=== PATIENT | male | born 1940 | race Caucasian/White ===

== ENCOUNTER 2017-01-13 18:46 | Inpatient (IN) ==
--- NOTE | 2017-01-13 20:16 | Emergency Department Note ---
Arrival - Arrival Chief Complaint: Shortness of Breath ED Nursing Triage Note: Pt arrives via ems from [facility] for further eval of shortness of breath that worsened today. Pt states that he has been nauseated all day and had chest pain off and on. Denies any pain at time of triage. Noted to have sob with exertion. Mode of Arrival: Stretcher Limitations: No Limitations Source: Patient Time Seen by Provider: 01/13/17 19:07 - History of Present Illness HPI Narrative: Patient was transferred here from [facility]. He went there today complaining of a dull, waxing and waning chest pain that it been present since this morning. That has resolved at present. He was also having some nausea but this is chronic with him due to diabetic gastroparesis. He also complained of some shortness of breath. He has a history of AR in the past with bypass and stents. Stent was placed [address] Cannon. He states this pain is different from the pain he felt with the MRI. He has had a cough productive of yellow sputum and some sinus drainage recently. He is a former smoker and is not clear, but he may have a history of COPD as well. Allergies/Adverse Reactions: Allergies Allergy/AdvReac Type Severity Reaction Status Date / Time No Known Allergies Allergy Unverified 08/28/16 03:04 Home Medications: Home Medications Medication Instructions Recorded Confirmed Type Aspirin [Ecotrin] 81 mg PO BEDTIME 08/28/16 01/13/17 History LORazepam [Ativan] 2 mg PO BID 08/28/16 01/13/17 History Losartan Potassium [Cozaar] 100 mg PO DAILY 08/28/16 01/13/17 History Magnesium Chloride [Slow Mag] 64 mg PO BID 08/28/16 01/13/17 History Melatonin/Pyridoxine HCl (B6) 3 mg PO BEDTIME 08/28/16 01/13/17 History [Melatonin 3 mg Tablet] OLANZapine TAB [ZyPREXA Tab] 5 mg PO BEDTIME 08/28/16 01/13/17 History Omeprazole [Prilosec] 20 mg PO BEDTIME 08/28/16 01/13/17 History Ondansetron HCl [Zofran] 4 mg PO Q4-6H PRN 08/28/16 01/13/17 History Ranolazine [Ranexa] 1,000 mg PO BID 08/28/16 01/13/17 History Rosuvastatin [Crestor] 10 mg PO DAILY 08/28/16 01/13/17 History glyBURIDE/METFORMIN 5-500 1,000 mg PO BID 08/28/16 01/13/17 History [Glucovance 5-500] traZODone [Desyrel] 100 mg PO BEDTIME 08/28/16 01/13/17 History Furosemide Tab [Lasix Tab] 40 mg PO DAILY #90 tablet 08/30/16 01/13/17 Rx Nebivolol [Bystolic] 10 mg PO DAILY #90 tablet 08/30/16 01/13/17 Rx Ticagrelor [Brilinta] 90 mg PO BID #180 tablet 08/30/16 01/13/17 Rx Review of System - Review of System 12 point system: reviewed and no additional remarkable complaints except as stated - Review of System Constitutional: Absent: fever, weakness Head/Ears/Nose/Throat: Present: nasal drainage Respiratory: Present: cough Cardiovascular: Present: chest pain Gastrointestinal: Present: nausea. Absent: abdominal pain, vomiting Medical,Surgical,& Family Hx - Medical History Cardio: History of: Cardiac Dysrhythmia, CAD, Hypertension, Valvular Heart Disease HEENT: History of: Ear Problem (EAR INFECTIONS, CAUSING HEARING LOSS) Endocrine: History of: Diabetes Mellitus (NIDDM) Respiratory: History of: Obstructive Sleep Apnea Gastrointestinal: History of: GI Problems (CONSTIPATION) Hematology: History of: Anemia, Hematologic Cancer (Multiple myeloma) - Surgical History Cardiac Surgeries: Sugical HX of: Cardiac Catheterization, Cardiac Surgery (CABG ), Carotid Endarterectomy (LEFT) HEENT Surgeries: Surgical HX of: Carotid Endarterectomy (LEFT) Abdominal Surgeries: Surgical HX of: Cholecystectomy Orthopedic Surgeries: Surgical HX of;: Total Knee Replacement (RIGHT AND LEFT) - Family History Family History: noncontributory - Social History Smoking Status: Current every day smoker Frequency of Alcohol Use: None Type of Drug Use: None Exam Physical Examination: GENERAL: Alert. No acute distress. Pale. HEENT: Normocephalic and atraumatic. PERRLA. EOMI. There is no nasal drainage. No pharyngeal erythema or exudate. NECK: Normal inspection. Supple. No lymphadenopathy or meningismus. LUNGS: No respiratory distress. Clear to auscultation bilaterally, no wheezes, rales or rhonchi. HEART: Regular rate and rhythm. 3/6 systolic murmur. ABDOMEN: Soft, nontender and nondistended with normoactive bowel sounds. BACK: Normal inspection. SKIN: Pale. Warm and dry. EXTREMITIES: Nontender. Normal range of motion. No pedal edema. NEUROLOGICAL/PSYCHIATRIC: Alert and oriented -3 with normal mood and affect. Cranial nerves normal. No motor or sensory deficit. Vital Signs: Vital Signs Temperature 98.9 F 01/13/17 18:46 Pulse Rate 80 01/13/17 18:46 Respiratory Rate 20 01/13/17 19:03 Blood Pressure 142/58 01/13/17 18:46 O2 Sat by Pulse Oximetry 100 01/13/17 18:46 Course - Reevaluation(s) Reevaluation #1: The patient has remained stable here in the emergency room. He continues to have some mild shortness of breath but denies any chest pain and has no nausea at present. I discussed patient with Dr. Johnson and will admit. I think the majority of his problem is due to his anemia and we will go ahead and transfuse him. Time: 20:37 Results - Labs Lab Results: I have reviewed the patients labs Labs: Labs were done at [facility] and are significant as follows: White blood cell count 6.72 Hemoglobin 7.3 Hematocrit 23.8 Platelets 275 Glucose 203 BUN 17 Creatinine 1.04 Sodium 131 Potassium 4.9 Carbon dioxide 21 Chloride 95 CK 31 CK-MB 1.7 Troponin less than 0.03 - Impressions EKG shows a sinus rhythm with prolonged FL interval and 74. There are inverted T waves laterally. Chest x-ray shows no acute abnormality. Disposition Clinical Impression: Anemia, Chest pain, Dyspnea, Gastroparesis Case discussed with: patient, patient's family Disposition: Still a Patient Condition: Guarded Time of Disposition: 20:38
[2017-01-13] MEDS ORDERED: MAGNESIUM SULF RIDER 2 GM in PREMIX 1 EACH IV PRN (21:36)
[2017-01-13] MEDS ORDERED: DEXTROSE 50% 25 GM/50 ML VIAL IV PRN (21:36)
[2017-01-13] MEDS ORDERED: GLUCAGON 1 MG VIAL IM PRN (21:36)
[2017-01-13] MEDS ORDERED: MAGNESIUM SULF RIDER 4 GM in PREMIX 1 EACH IV PRN (21:36)
[2017-01-13] MEDS ORDERED: SODIUM CHLORIDE 0.9% 250 ML IV PRN (21:36)
[2017-01-14] MEDS: ONDANSETRON 4 MG/2 ML VIAL IV PRN ×2 (02:01→08:36)
--- NOTE | 2017-01-14 07:27 | EKG Report ---
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
[2017-01-14 07:57] LABS: Basophils % 0.4 % (0.0-0.8); Eosinophils # 0.1 10*3/uL (0.0-0.87); Eosinophils % 0.7 % (0.00-10.9); Hematocrit 29.6 VOL% (42.0-52.0); Hemoglobin 9.9 GM/DL (14.0-18.0); Immature Granulocytes Absolute 0.08 #; Lymphocytes # 0.5 10*3/uL (1.4-4.0); Lymphocytes % 5.8 % (21.2-54.2); Mean Corpuscular HGB Conc 33.4 GM/DL (32-36); Mean Corpuscular Hemoglobin 29 PG (27-34); Mean Platelet Volume 11.8 FL (9.6-12.0); Monocytes # 0.4 10*3/uL (0.11-0.8); Monocytes % 5.5 % (1.7-12.7); Neutrophils % 86.6 % (38.7-73.9); Platelet Count 214 T/CUMM (130-400); Red Blood Count 3.44 MC/CUMM (3.8-5.5); Red Cell Distribution Width 16.4 % (9.3-17.3)
[2017-01-14] MEDS: PANTOPRAZOLE 40 MG TABLET PO SCH (08:35)
[2017-01-14] MEDS ORDERED: DOCUSATE SODIUM 100 MG CAPSULE PO SCH (09:00)
[2017-01-14] MEDS ORDERED: OLANZapine 5 MG TABLET PO SCH (09:00)
[2017-01-14] MEDS ORDERED: ROSUVASTATIN 10 MG TABLET PO SCH (09:00)
[2017-01-14] MEDS ORDERED: LORazepam 1 MG TABLET PO PRN (09:00)
[2017-01-14] MEDS ORDERED: LOSARTAN 50 MG TABLET PO SCH (09:00)
[2017-01-14] MEDS: RANOLAZINE 500 MG TABLET PO SCH ×2 (09:38→20:36)
[2017-01-14] MEDS: FERROUS SULFATE 325 MG TABLET PO SCH ×2 (09:38→20:36)
[2017-01-14] MEDS: MAGNESIUM CHLORIDE 64 MG TABLET PO SCH (09:38)
[2017-01-14] MEDS: POTASSIUM CHLORIDE 20 MEQ TABLET PO SCH (09:39)
[2017-01-14] MEDS: PROMETHAZINE 25 MG TABLET PO PRN ×2 (09:39→20:36)
[2017-01-14] MEDS: CLOPIDOGREL 75 MG TABLET PO SCH (09:39)
[2017-01-14] MEDS: FUROSEMIDE 20 MG TABLET PO SCH (09:41)
[2017-01-14] MEDS: NEBIVOLOL 5 MG TABLET PO SCH (09:41)
--- NOTE | 2017-01-14 09:58 | EKG Report ---
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
[2017-01-14 11:51] LABS: Basophils % 0.4 % (0.0-0.8); Eosinophils # 0.1 10*3/uL (0.0-0.87); Eosinophils % 0.9 % (0.00-10.9); Hematocrit 30.5 VOL% (42.0-52.0); Immature Granulocytes % 1.2 %; Immature Granulocytes Absolute 0.09 #; Lymphocytes # 0.4 10*3/uL (1.4-4.0); Lymphocytes % 4.9 % (21.2-54.2); Mean Corpuscular HGB Conc 32.8 GM/DL (32-36); Mean Corpuscular Hemoglobin 28 PG (27-34); Mean Corpuscular Volume 86.6 FL (87-102); Mean Platelet Volume 11.9 FL (9.6-12.0); Monocytes # 0.5 10*3/uL (0.11-0.8); Monocytes % 6.5 % (1.7-12.7); Neutrophils # 6.7 10*3/uL (1.4-7.4); Neutrophils % 86.1 % (38.7-73.9); Platelet Count 216 T/CUMM (130-400); Red Blood Count 3.52 MC/CUMM (3.8-5.5); Red Cell Distribution Width 16.3 % (9.3-17.3); White Blood Count 7.8 T/CUMM (4-12)
--- NOTE | 2017-01-14 12:35 | Cardiology History & Physical ---
Assessment and Plan (1) Anemia Status: Acute Assessment and plan: The patient has a marked anemia, which I think is the source of his presenting symptoms. This is likely multifactorial. He has a chronic iron deficiency and a multiple myeloma. He sometimes gets IV iron. He also is on anticoagulation for his stent. He tells me that he was recently changed from Brilinta to Plavix and I agree with this adjustment. He does not have any overt gastrointestinal blood loss. We will get her give him a transfusion and make sure his hemoglobin remained stable. If this remains stable and his symptoms resolved, he may not need further workup right now. If his hemoglobin begins to drop we could reconsult gastroenterology and/or hematology. Current Visit: Yes (2) Dyspnea Status: Acute Assessment and plan: This is multifactorial, related to his COPD, heart disease, advanced age, deconditioning, as well as his marked anemia. I think the recent worsening in his symptoms is probably related to the anemia. We are going to correct this and see how he does. Current Visit: Yes (3) Gastroparesis Status: Acute Assessment and plan: This is been followed by gastroenterology. This is a chronic stable problem. Current Visit: Yes (4) Aortic stenosis Status: Chronic Current Visit: No (5) CAD (coronary artery disease) Status: Chronic Assessment and plan: He has not had any symptoms that really sound like angina. His cardiac enzymes are negative. We will continue medical management for now. Current Visit: No (6) COPD (chronic obstructive pulmonary disease) Status: Chronic Current Visit: No (7) Diabetes Status: Chronic Current Visit: No (8) Dyslipidemia Status: Chronic Current Visit: No (9) Hypertension Status: Chronic Current Visit: No (10) Ischemic cardiomyopathy Status: Chronic Current Visit: No (11) Multiple myeloma Status: Chronic Current Visit: No History of Present Illness History of present illness: Mr. Pa is a 76 year old male with a history of multiple medical problems including coronary artery disease, hypertension, hyperlipidemia, diabetes, multiple myeloma, and diabetic gastroparesis. The patient went to his local hospital after feeling very weak and tired for several days. The symptoms were moderate to severe. There were no specific exacerbating or relieving factors. He also had some nausea/epigastric discomfort which seem to be related to his gastroparesis. At the [facility] he was noted to have a severe anemia with a hemoglobin of around 7 and a hematocrit of around 23. The patient denies any gastrointestinal blood loss, or other sources of blood loss. Given his complex past medical history he was transferred here for further workup and management. Patient has had some vague epigastric discomfort, but nothing that really sounds like angina. His symptoms sound much more like gastroparesis. The symptoms are mild to moderate and chronic in nature. He has not had any palpitations or syncope. He has had no orthopnea, PND, or peripheral edema. He has been very fatigued and tired for several days which is probably secondary to the anemia. His initial cardiac laboratory showed normal cardiac enzymes. His EKG does not show any acute changes. He has chronic ST-T abnormalities which are unchanged from his previous hospitalization. Home Medications Medication Instructions Recorded Confirmed Type Aspirin [Ecotrin] 81 mg PO BEDTIME 08/28/16 01/13/17 History LORazepam [Ativan] 2 mg PO Q6HR 08/28/16 01/14/17 History Magnesium Chloride [Slow Mag] 64 mg PO DAILY 08/28/16 01/14/17 History Melatonin/Pyridoxine HCl (B6) 3 mg PO BEDTIME 08/28/16 01/13/17 History [Melatonin 3 mg Tablet] OLANZapine TAB [ZyPREXA Tab] 5 mg PO BEDTIME 08/28/16 01/14/17 History Omeprazole [Prilosec] 20 mg PO DAILY 08/28/16 01/14/17 History Ranolazine [Ranexa] 500 mg PO BID 08/28/16 01/14/17 History Rosuvastatin [Crestor] 10 mg PO BEDTIME 08/28/16 01/14/17 History glyBURIDE/METFORMIN 5-500 1,000 mg PO BID 08/28/16 01/13/17 History [Glucovance 5-500] Amiodarone Tab [Cordarone Tab] 200 mg PO BEDTIME 01/14/17 01/14/17 History Clopidogrel [Plavix] 75 mg PO DAILY 01/14/17 01/14/17 History Docusate Sodium [Colace] 100 mg PO BEDTIME 01/14/17 01/14/17 History Ferrous Sulfate 325 mg PO Q12HR 01/14/17 01/14/17 History Furosemide Tab [Lasix Tab] 20 mg PO DAILY 01/14/17 01/14/17 History Nebivolol [Bystolic] 5 mg PO DAILY 01/14/17 01/14/17 History Polyethylene Glycol Powder 17 gm PO BEDTIME 01/14/17 01/14/17 History [Miralax] Potassium Chloride 20 meq PO DAILY 01/14/17 01/14/17 History Promethazine Tab [Phenergan Tab] 25 mg PO Q4H PRN 01/14/17 01/14/17 History traZODone [Desyrel] 100 mg PO BEDTIME 01/14/17 01/14/17 History Allergies Allergy/AdvReac Type Severity Reaction Status Date / Time No Known Allergies Allergy Unverified 08/28/16 03:04 12 point system: reviewed and no additional remarkable complaints except as stated Medical,Surgical,& Family Hx - Medical History Cardio: History of: Cardiac Dysrhythmia, CAD, Hypertension, Valvular Heart Disease HEENT: History of: Ear Problem (EAR INFECTIONS, CAUSING HEARING LOSS) Endocrine: History of: Diabetes Mellitus (NIDDM) Respiratory: History of: Obstructive Sleep Apnea Gastrointestinal: History of: GI Problems (CONSTIPATION) Hematology: History of: Anemia, Hematologic Cancer (Multiple myeloma) - Surgical History Cardiac Surgeries: Sugical HX of: Cardiac Catheterization, Cardiac Surgery (CABG ), Carotid Endarterectomy (LEFT) HEENT Surgeries: Surgical HX of: Carotid Endarterectomy (LEFT) Abdominal Surgeries: Surgical HX of: Cholecystectomy Orthopedic Surgeries: Surgical HX of;: Total Knee Replacement (RIGHT AND LEFT) - Social History Smoking Status: Current every day smoker Frequency of Alcohol Use: None Type of Drug Use: None Cardiology Physical Exam - Constitutional Vitals: Vital Signs Temp Pulse Resp BP Pulse Ox 98.4 F 72 18 132/64 99 01/14/17 12:00 01/14/17 12:00 01/14/17 12:00 01/14/17 12:00 01/14/17 12:00 Intake and Output 01/13/17 01/14/17 01/14/17 23:59 07:59 15:59 Intake Total 480 / 480 1000 / 1000 350 / 350 Output Total 750 / 750 400 / 400 Balance -270 / -270 600 / 600 350 / 350 Intake: Oral 480 / 480 300 / 300 Blood Product 0 / 0 700 / 700 350 / 350 Red Blood Cells Leuko Red 0 / 0 350 / 350 Unit [id number] Red Blood Cells Leuko Red 0 / 0 350 / 350 Unit [id number] Red Blood Cells Lr Split 350 / 350 2 Unit [id number] Output: Urine 750 / 750 400 / 400 Other: Voiding Method Urinal Weight 90.917 kg 90.917 kg Patient Weight 01/14/17 23:59 Weight 90.917 kg Exam: General: Frail, elderly, chronically ill-appearing HEENT: Normocephalic, atraumatic Neck: Supple Neck, Midline Trachea Cardiac: Regular rhythm, 2/6 systolic murmur, no gallop, no rub Lungs: Coarse breath sounds with generally poor air movement and very slight expiratory wheeze Neuro: Cranial Nerve 2-12 Intact, diffuse generalized weakness Abdomen: Soft, Active Bowel Sounds, No Masses, No Pulsations/Bruits Skin: Chronic skin changes of aging Extremities: No Clubbing, No Cyanosis, No Edema, Normal Upper Extr. Pulses Musculoskeletal: No acute abnormality noted Psychiatric: The patient is alert and oriented. The patient has a flat affect but does not appear to be anxious or depressed. Result/EKG - Labs CBC & BMP: 01/14/17 11:37 Lab Results: I have reviewed the past 24 hour labs Labs: Laboratory Results - last 24 hr 01/13/17 01/13/17 01/13/17 19:18 20:42 21:36 WBC RBC Hgb Hct MCV MCH MCHC RDW Plt Count MPV Neut % (Auto) Lymph % (Auto) Union % (Auto) Eos % (Auto) Baso % (Auto) Neut # (Auto) Lymph # (Auto) Union # (Auto) Eos # (Auto) Baso # (Auto) Immature Gran % Nucleated RBC % Immature Gran # Nucleated RBCs # POC Glucose Troponin I 0.019 Blood Type A POSITIVE A POSITIVE Antibody Screen Negative Crossmatch See Detail 01/14/17 01/14/17 01/14/17 07:36 07:46 11:37 WBC 8.0 7.8 RBC 3.44 L 3.52 L Hgb 9.9 L 10.0 L Hct 29.6 L 30.5 L MCV 86.0 L 86.6 L MCH 29 28 MCHC 33.4 32.8 RDW 16.4 16.3 Plt Count 214 216 MPV 11.8 11.9 Neut % (Auto) 86.6 H 86.1 H Lymph % (Auto) 5.8 L 4.9 L Union % (Auto) 5.5 6.5 Eos % (Auto) 0.7 0.9 Baso % (Auto) 0.4 0.4 Neut # (Auto) 7.0 6.7 Lymph # (Auto) 0.5 L 0.4 L Union # (Auto) 0.4 0.5 Eos # (Auto) 0.1 0.1 Baso # (Auto) 0.0 0.0 Immature Gran % 1.0 1.2 Nucleated RBC % 0.0 0.0 Immature Gran # 0.08 0.09 Nucleated RBCs # 0.00 0.00 POC Glucose 209 H Troponin I Blood Type Antibody Screen Crossmatch 01/14/17 11:51 WBC RBC Hgb Hct MCV MCH MCHC RDW Plt Count MPV Neut % (Auto) Lymph % (Auto) Union % (Auto) Eos % (Auto) Baso % (Auto) Neut # (Auto) Lymph # (Auto) Union # (Auto) Eos # (Auto) Baso # (Auto) Immature Gran % Nucleated RBC % Immature Gran # Nucleated RBCs # POC Glucose 216 H Troponin I Blood Type Antibody Screen Crossmatch - EKG EKG results: interpreted by me
[2017-01-14 13:00] LABS: Hypochromasia Slight; Polychromasia Slight
--- NOTE | 2017-01-14 14:02 | XRay Report ---
XR chest 2V Indication: COPD, dyspnea Comparison: 13 January 2017 Findings: The heart and mediastinum are stable in size and configuration. The pulmonary vascularity is slightly increased with bilateral increased interstitial lung density. No other lung infiltrates, effusions, pneumothorax or other abnormality is demonstrated. Impression: Findings suggest mild cardiac decompensation. PROCEDURE INTERPRETED AT [facility] DEPARTMENT OF RADIOLOGY Final Report Signed by: Dr. Jaylen Spangler
[2017-01-14 15:10] LABS: Apearance,Urine CLEAR (Clear); Bacteria,Urine Occasional /HPF (Few); Bilirubin,Urine Negative (Negative); Blood, Urine Negative (Negative); Glucose,Urine (UA) Negative (Negative); Ketones,Urine Negative (Negative); Nitrite,Urine Negative (Negative); Protein,Urine Negative; RBC,Urine <1 /HPF (0-4); Urine Color Colorless (Yellow); Urine Specific Gravity 1.003 (1.001-1.035); Urine Urobilinogen < 2.0 EU/DL (0.2-1.0); WBC,Urine <1 /HPF (0-6)
[2017-01-14] MEDS: glyBURIDE/METFORMIN 5-500 MG TABLET PO SCH (17:08)
[2017-01-14] MEDS: ROSUVASTATIN 10 MG TABLET PO SCH (20:36)
[2017-01-14] MEDS: POLYETHYLENE GLYCOL POWDER 17 GM PACK PO SCH (20:36)
[2017-01-14] MEDS: OLANZapine 5 MG TABLET PO SCH (20:37)
[2017-01-14] MEDS: DOCUSATE SODIUM 100 MG CAPSULE PO SCH (20:37)
[2017-01-14] MEDS: traZODone 50 MG TABLET PO SCH (20:37)
[2017-01-14] MEDS: ASPIRIN CHEW 81 MG TABLET PO SCH (20:37)
[2017-01-14] MEDS: AMIODARONE 200 MG TABLET PO SCH (20:37)
[2017-01-14] MEDS: MELATONIN 3 MG TABLET PO SCH (20:37)
[2017-01-14] MEDS ORDERED: ASPIRIN CHEW 81 MG TABLET PO SCH (21:00)
[2017-01-15 05:46] LABS: Basophils % 0.5 % (0.0-0.8); Eosinophils # 0.1 10*3/uL (0.0-0.87); Eosinophils % 1.2 % (0.00-10.9); Hematocrit 26.9 VOL% (42.0-52.0); Immature Granulocytes % 0.7 %; Immature Granulocytes Absolute 0.03 #; Lymphocytes # 0.5 10*3/uL (1.4-4.0); Lymphocytes % 12.3 % (21.2-54.2); Mean Corpuscular HGB Conc 33.5 GM/DL (32-36); Mean Corpuscular Hemoglobin 29 PG (27-34); Mean Corpuscular Volume 85.4 FL (87-102); Mean Platelet Volume 12.1 FL (9.6-12.0); Monocytes # 0.4 10*3/uL (0.11-0.8); Monocytes % 8.3 % (1.7-12.7); Neutrophils # 3.3 10*3/uL (1.4-7.4); Platelet Count 182 T/CUMM (130-400); Red Blood Count 3.15 MC/CUMM (3.8-5.5); Red Cell Distribution Width 16.5 % (9.3-17.3); White Blood Count 4.2 T/CUMM (4-12)
[2017-01-15 06:19] LABS: Calcium 8.2 MG/DL (8.5-10.1); Magnesium 2.1 MG/DL (1.8-2.4); Osmolality,Calculated 277.3 MOS/KG (273-304); Potassium 4.1 MMOL/L (3.5-5.1)
[2017-01-15] MEDS: CLOPIDOGREL 75 MG TABLET PO SCH (09:36)
[2017-01-15] MEDS: MAGNESIUM CHLORIDE 64 MG TABLET PO SCH (09:36)
[2017-01-15] MEDS: FUROSEMIDE 20 MG TABLET PO SCH (09:36)
[2017-01-15] MEDS: POLYETHYLENE GLYCOL POWDER 17 GM PACK PO SCH (09:36)
[2017-01-15] MEDS: RANOLAZINE 500 MG TABLET PO SCH ×2 (09:36→21:23)
[2017-01-15] MEDS: NEBIVOLOL 5 MG TABLET PO SCH (09:37)
[2017-01-15] MEDS: POTASSIUM CHLORIDE 20 MEQ TABLET PO SCH (09:37)
[2017-01-15] MEDS: glyBURIDE/METFORMIN 5-500 MG TABLET PO SCH ×2 (09:37→17:52)
[2017-01-15] MEDS: FERROUS SULFATE 325 MG TABLET PO SCH ×2 (09:37→21:26)
[2017-01-15] MEDS: PANTOPRAZOLE 40 MG TABLET PO SCH (09:38)
--- NOTE | 2017-01-15 12:03 | Cardiology Progress Note ---
<Evelyn Sylvester - Last Filed: 01/15/17 12:05> Assessment and Plan - Time spent with patient Time spent with patient: Greater than 30 minutes (1) Anemia Status: Acute Assessment and plan: See plan of care listed below. Current Visit: Yes Qualifiers: Anemia type: iron deficiency (2) Chest pain Status: Resolved Assessment and plan: See plan of care listed below. Current Visit: Yes (3) Dyspnea Status: Acute Assessment and plan: See plan of care listed below. Current Visit: Yes (4) Gastroparesis Status: Chronic Assessment and plan: See plan of care listed below. Current Visit: Yes (5) Aortic stenosis Status: Chronic Assessment and plan: See plan of care listed below. Current Visit: No (6) Atrial fibrillation Status: Chronic Assessment and plan: See plan of care listed below. Current Visit: No Qualifiers: Atrial fibrillation type: paroxysmal Qualified Code(s): I48.0 - Paroxysmal atrial fibrillation (7) CAD (coronary artery disease) Status: Chronic Assessment and plan: See plan of care listed below. Current Visit: No (8) COPD (chronic obstructive pulmonary disease) Status: Chronic Assessment and plan: See plan of care listed below. Current Visit: No (9) Diabetes Status: Chronic Assessment and plan: See plan of care listed below. Current Visit: Yes Qualifiers: Diabetes mellitus type: type 2 (10) Dyslipidemia Status: Chronic Assessment and plan: See plan of care listed below. Current Visit: Yes (11) Hypertension Status: Chronic Current Visit: No (12) Ischemic cardiomyopathy Status: Chronic Assessment and plan: See plan of care listed below. Current Visit: No (13) Multiple myeloma Status: Chronic Assessment and plan: See plan of care listed below. Current Visit: No (14) Tobacco abuse Status: Chronic Assessment and plan: See plan of care listed below. Current Visit: No Cardiology - PN: Subj Interval history: PCP: Dr. Pereyra Order Processor: Dr. Moore SUMMARY Mr. Pa is a 76 year old male previously followed by Dr. Back, now routinely followed by Dr. Moore. Risk factors include: Age, known coronary artery disease (history of CABG in years past), hypertension, dyslipidemia, diffuse peripheral vascular disease, chronic tobacco use, sedentary lifestyle. History of atrial fibrillation (not previously taking NOAC or anti-coagulant), COPD, multiple myeloma (followed by Dr. Ryder and thought to be well- controlled, has not received treatment in almost 1 year) History of anemia requiring IV iron. History of gastroparesis followed by Dr. Suh. Patient's most recent heart catheterization was performed August 2016. At that time, he received stent to circumflex. He was last seen in the cardiology clinic December. At that time his Brilinta was changed to Plavix as this was thought to possibly be contributing to his dyspnea. He was also sent home with a 48 hour Holter monitor. JANUARY 15, 2017 Patient was seen and examined on the telemetry unit. He has significantly improved overnight and is anxious for discharge home today. However, his H&H dropped to 9.0 and 26.9 from 10 and 30.5 yesterday. Patient is currently on dual antiplatelet therapy after having drug-eluting stent placed to circumflex artery in August 2016. Stool will be checked for occult blood. No overt bleeding. GI has been consulted to further evaluate. Patient denies chest pain , heaviness and tightness. He reports that he is no longer feeling short of breath. Cardiac biomarkers have been negative 1. EKG is unchanged. Will continue to cycle these. Will further discuss with Dr. Moore and await his additional recommendations. ASSESSMENT/PLAN: 1. CHEST PAIN - Resolved. Patient's symptoms did not sound like angina. Cardiac biomarkers have been negative. We will continue to cycle cardiac biomarkers and EKGs. 2. DYSPNEA - Significantly improved overnight. This is multifactorial, related to his COPD, heart disease, advanced age, deconditioning, as well as his marked anemia. I think the recent worsening in his symptoms is probably related to the anemia. 3. ANEMIA - Patient has chronic iron deficiency anemia, routinely followed by Dr. Ryder. Occasionally receives IV iron transfusions. H&H at [facility] 7 and 23. H&H this morning has dropped to 9.0 and 26.9 from 10.0 and 30.5 yesterday. Patient received 2 units of packed red blood cells this hospitalization. No overt bleeding. Will check stool for occult blood. Anemia profile. Daily CBC. Patient just recently received stent to circumflex artery, August 2016. We will continue dual antiplatelet therapy and consult GI for further workup. 4. KNOWN CAD S/P [place] AND CABG - Known coronary artery disease. Currently chest pain-free. Continue beta-oral, dual antiplatelet therapy, lipid- lowering agent and ARB. 5. HYPERTENSION - usually well controlled. We'll adjust medications accordingly during the hospital stay. 6. DYSLIPIDEMIA - continue lipid-lowering agent. Will order lipid panel. 7. DIABETES - Continue with sliding scale insulin. Accu-Cheks before meals and at bedtime. 8. COPD - Clinically stable this hospitalization. Resume home meds 9. MULTIPLE MYELOMA - consult Dr. Ryder. Requires IV iron and was scheduled to receive IV infusion mid week this week 10. TOBACCOISM - Greater than 5 minutes was spent today discussing the merits of tobacco cessation 11. ATRIAL FIBRILLATION - Currently regular sinus rhythm. On aspirin. Not a candidate for NOAC or anticoagulant due to significant anemia. Continue beta- blockade and amiodarone. 12. HISTORY OF GASTROPARESIS - This is been followed by gastroenterology. This is a chronic stable problem. 13. AORTIC STENOSIS - Chronic. Continue current plan of care. 14. ISCHEMIC CARDIOMYOPATHY - Most recent ejection fraction noted to be 30-35% per heart catheterization August 2016. This is clinically stable. ARB has been reinitiated. Will monitor with daily BMP. Exam (Progress Note) - Constitutional Vitals: Period Temp Pulse Resp BP Sys/Khan Pulse Ox Last 24 Hr 97.2 F-99.7 F 70-86 16-20 110-152/57-74 91-99 Exam: General: Appears well with no apparent distress. Pleasant and cooperative. Appears comfortable. HEENT: PERRL, normocephalic, atraumatic. Mucous membranes moist. No jaundice noted. Conjunctiva moist and clear, sclerae anicteric Neck: No JVD/HJR, no thyromegaly or lymphadenopathy noted. No carotid bruit appreciated Cardiac: Regular rhythm, 2/6 systolic murmur, no gallop, no rub. Lungs: Decreased breath sounds. Requiring oxygen via nasal cannula. Abdomen: Soft, bowel sounds normoactive. Nontender and nondistended. No abdominal bruit or thrill noted. No masses noted. Extremities: No clubbing, cyanosis noted. No edema noted. Upper extremity pulses 2+. Lower extremity pulses 2+. Capillary refill less than 3 seconds. Skin: No unusual lesions or rashes. No skin breakdown appreciated. Neuro: Awake, alert and oriented 3. Moves all extremities well without hemiparesis or paralysis. No essential tremor is appreciated. Result/EKG - Labs CBC & BMP: 01/15/17 05:09 01/15/17 05:09 Lab Results: I have reviewed the past 24 hour labs Labs: Laboratory Results - last 24 hr 01/14/17 01/14/17 01/14/17 11:37 11:51 14:47 WBC 7.8 RBC 3.52 L Hgb 10.0 L Hct 30.5 L MCV 86.6 L MCH 28 MCHC 32.8 RDW 16.3 Plt Count 216 MPV 11.9 Neut % (Auto) 86.1 H Lymph % (Auto) 4.9 L [place] % (Auto) 6.5 Eos % (Auto) 0.9 Baso % (Auto) 0.4 Neut # (Auto) 6.7 Lymph # (Auto) 0.4 L [place] # (Auto) 0.5 Eos # (Auto) 0.1 Baso # (Auto) 0.0 Immature Gran % 1.2 Nucleated RBC % 0.0 Immature Gran # 0.09 Nucleated RBCs # 0.00 Polychromasia Slight Hypochromasia Slight Sodium Potassium Chloride Carbon Dioxide Anion Gap BUN Creatinine GFR Calculation BUN/Creatinine Ratio Glucose POC Glucose 216 H 273 H Calculated Osmolality Calcium Magnesium Urine Color Urine Appearance Urine pH Ur Specific [place] Urine Protein Urine Glucose (UA) Urine Ketones Urine Blood Urine Nitrate Urine Bilirubin Urine Urobilinogen Urine Leukocytes Urine RBC Urine WBC Urine Bacteria Ur Culture Indicated? 01/14/17 01/14/17 01/15/17 15:00 19:20 05:09 WBC 4.2 D RBC 3.15 L Hgb 9.0 L Hct 26.9 L MCV 85.4 L MCH 29 MCHC 33.5 RDW 16.5 Plt Count 182 MPV 12.1 H Neut % (Auto) 77.0 H Lymph % (Auto) 12.3 L [place] % (Auto) 8.3 Eos % (Auto) 1.2 Baso % (Auto) 0.5 Neut # (Auto) 3.3 Lymph # (Auto) 0.5 L [place] # (Auto) 0.4 Eos # (Auto) 0.1 Baso # (Auto) 0.0 Immature Gran % 0.7 Nucleated RBC % 0.0 Immature Gran # 0.03 Nucleated RBCs # 0.00 Polychromasia Hypochromasia Sodium Potassium Chloride Carbon Dioxide Anion Gap BUN Creatinine GFR Calculation BUN/Creatinine Ratio Glucose POC Glucose 270 H Calculated Osmolality Calcium Magnesium Urine Color Colorless Urine Appearance Clear Urine pH 5.0 Ur Specific [place] 1.003 Urine Protein Negative Urine Glucose (UA) Negative Urine Ketones Negative Urine Blood Negative Urine Nitrate Negative Urine Bilirubin Negative Urine Urobilinogen < 2.0 H Urine Leukocytes Negative Urine RBC <1 Urine WBC <1 Urine Bacteria Occasional Ur Culture Indicated? Not indicated 01/15/17 01/15/17 01/15/17 05:09 07:19 11:30 WBC RBC Hgb Hct MCV MCH MCHC RDW Plt Count MPV Neut % (Auto) Lymph % (Auto) [place] % (Auto) Eos % (Auto) Baso % (Auto) Neut # (Auto) Lymph # (Auto) [place] # (Auto) Eos # (Auto) Baso # (Auto) Immature Gran % Nucleated RBC % Immature Gran # Nucleated RBCs # Polychromasia Hypochromasia Sodium 141 Potassium 4.1 Chloride 106 Carbon Dioxide 28 Anion Gap 11.1 BUN 10 Creatinine 0.90 GFR Calculation 102 BUN/Creatinine Ratio 11.00 Glucose 61 L POC Glucose 96 245 H Calculated Osmolality 277.3 Calcium 8.2 L Magnesium 2.1 Urine Color Urine Appearance Urine pH Ur Specific [place] Urine Protein Urine Glucose (UA) Urine Ketones Urine Blood Urine Nitrate Urine Bilirubin Urine Urobilinogen Urine Leukocytes Urine RBC Urine WBC Urine Bacteria Ur Culture Indicated? <Vikash Moore - Last Filed: 01/15/17 13:57> Cardiology - PN: Subj Interval history: Cardiology addendum Patient examined chart reviewed discussed with nurse Evelyn Sylvester RN. Recurrent symptomatically anemia hemoglobin 7 hematocrit 23 at [facility]. Patient received 3 units of packed red blood cells. Patient has iron deficiency anemia and receives IV iron by Dr. Ryder. Ischemic cardia myopathy Status post three-vessel CABG 1997 Status post non-Q-wave infarction October 02, 2006 circumflex vein graft stent. Status post non Q wave infarction August 28, 2016 with mid circumflex stent. Ejection fraction 30-35%. The BONILLA graft to LAD was patent. The vein graft to the circumflex was occluded and vein graft to right coronary is occluded. History of multiple myeloma. Nosebleeds with Eliquis resolved Recurrent Paroxysmal atrial fibrillation taking amiodarone 200 mg twice daily Diabetes Gastroparesis Status post carotid endarterectomy Plan CBC in a.m. Consult Dr. Suh Currently patient is on Plavix and aspirin for circumflex stent August 2016 Exam (Progress Note) - Constitutional Vitals: Period Temp Pulse Resp BP Sys/Khan Pulse Ox Last 24 Hr 97.2 F-99.7 F 70-86 16-20 110-152/57-74 91-96 Result/EKG - Labs CBC & BMP: 01/15/17 11:36 01/15/17 05:09 Labs: Laboratory Results - last 24 hr 01/14/17 01/14/17 01/14/17 14:47 15:00 19:20 WBC RBC Hgb Hct MCV MCH MCHC RDW Plt Count MPV Neut % (Auto) Lymph % (Auto) [place] % (Auto) Eos % (Auto) Baso % (Auto) Neut # (Auto) Lymph # (Auto) [place] # (Auto) Eos # (Auto) Baso # (Auto) Immature Gran % Nucleated RBC % Immature Gran # Nucleated RBCs # ESR [place] Absolute Retic Percent Retic Retic Hgb Equivalent Sodium Potassium Chloride Carbon Dioxide Anion Gap BUN Creatinine GFR Calculation BUN/Creatinine Ratio Glucose POC Glucose 273 H 270 H Calculated Osmolality Calcium Magnesium Ferritin Total Creatine Kinase CK-MB (CK-2) Troponin I Vitamin B12 Folate Urine Color Colorless Urine Appearance Clear Urine pH 5.0 Ur Specific [place] 1.003 Urine Protein Negative Urine Glucose (UA) Negative Urine Ketones Negative Urine Blood Negative Urine Nitrate Negative Urine Bilirubin Negative Urine Urobilinogen < 2.0 H Urine Leukocytes Negative Urine RBC <1 Urine WBC <1 Urine Bacteria Occasional Ur Culture Indicated? Not indicated 01/15/17 01/15/17 01/15/17 05:09 05:09 07:19 WBC 4.2 D RBC 3.15 L Hgb 9.0 L Hct 26.9 L MCV 85.4 L MCH 29 MCHC 33.5 RDW 16.5 Plt Count 182 MPV 12.1 H Neut % (Auto) 77.0 H Lymph % (Auto) 12.3 L [place] % (Auto) 8.3 Eos % (Auto) 1.2 Baso % (Auto) 0.5 Neut # (Auto) 3.3 Lymph # (Auto) 0.5 L [place] # (Auto) 0.4 Eos # (Auto) 0.1 Baso # (Auto) 0.0 Immature Gran % 0.7 Nucleated RBC % 0.0 Immature Gran # 0.03 Nucleated RBCs # 0.00 ESR [place] Absolute Retic Percent Retic Retic Hgb Equivalent Sodium 141 Potassium 4.1 Chloride 106 Carbon Dioxide 28 Anion Gap 11.1 BUN 10 Creatinine 0.90 GFR Calculation 102 BUN/Creatinine Ratio 11.00 Glucose 61 L POC Glucose 96 Calculated Osmolality 277.3 Calcium 8.2 L Magnesium 2.1 Ferritin Total Creatine Kinase CK-MB (CK-2) Troponin I Vitamin B12 Folate Urine Color Urine Appearance Urine pH Ur Specific [place] Urine Protein Urine Glucose (UA) Urine Ketones Urine Blood Urine Nitrate Urine Bilirubin Urine Urobilinogen Urine Leukocytes Urine RBC Urine WBC Urine Bacteria Ur Culture Indicated? 01/15/17 01/15/17 01/15/17 11:30 11:36 11:36 WBC 4.9 RBC 3.50 L Hgb 10.0 L Hct 30.3 L MCV 86.6 L MCH 29 MCHC 33.0 RDW 16.7 Plt Count 210 MPV 11.9 Neut % (Auto) 81.6 H Lymph % (Auto) 9.7 L [place] % (Auto) 5.9 Eos % (Auto) 1.6 Baso % (Auto) 0.4 Neut # (Auto) 4.0 Lymph # (Auto) 0.5 L [place] # (Auto) 0.3 Eos # (Auto) 0.1 Baso # (Auto) 0.0 Immature Gran % 0.8 Nucleated RBC % 0.0 Immature Gran # 0.04 Nucleated RBCs # 0.00 ESR W[place]gren 115 H Absolute Retic 0.1 Percent Retic 2.3 H Retic Hgb Equivalent 23.0 L Sodium Potassium Chloride Carbon Dioxide Anion Gap BUN Creatinine GFR Calculation BUN/Creatinine Ratio Glucose POC Glucose 245 H Calculated Osmolality Calcium Magnesium Ferritin Total Creatine Kinase 27 L CK-MB (CK-2) 1.3 Troponin I 0.041 Vitamin B12 Folate Urine Color Urine Appearance Urine pH Ur Specific [place] Urine Protein Urine Glucose (UA) Urine Ketones Urine Blood Urine Nitrate Urine Bilirubin Urine Urobilinogen Urine Leukocytes Urine RBC Urine WBC Urine Bacteria Ur Culture Indicated? 01/15/17 01/15/17 11:36 11:36 WBC RBC Hgb Hct MCV MCH MCHC RDW Plt Count MPV Neut % (Auto) Lymph % (Auto) [place] % (Auto) Eos % (Auto) Baso % (Auto) Neut # (Auto) Lymph # (Auto) [place] # (Auto) Eos # (Auto) Baso # (Auto) Immature Gran % Nucleated RBC % Immature Gran # Nucleated RBCs # ESR [place] Absolute Retic Percent Retic Retic Hgb Equivalent Sodium Potassium Chloride Carbon Dioxide Anion Gap BUN Creatinine GFR Calculation BUN/Creatinine Ratio Glucose POC Glucose Calculated Osmolality Calcium Magnesium Ferritin 44.8 Total Creatine Kinase CK-MB (CK-2) Troponin I Vitamin B12 248 Folate 18.4 Urine Color Urine Appearance Urine pH Ur Specific [place] Urine Protein Urine Glucose (UA) Urine Ketones Urine Blood Urine Nitrate Urine Bilirubin Urine Urobilinogen Urine Leukocytes Urine RBC Urine WBC Urine Bacteria Ur Culture Indicated?
[2017-01-15 12:26] LABS: Troponin I Only 0.041 NG/ML (0.00-0.045)
[2017-01-15 12:35] LABS: Basophils % 0.4 % (0.0-0.8); Eosinophils # 0.1 10*3/uL (0.0-0.87); Eosinophils % 1.6 % (0.00-10.9); Hematocrit 30.3 VOL% (42.0-52.0); Immature Granulocytes % 0.8 %; Immature Granulocytes Absolute 0.04 #; Lymphocytes # 0.5 10*3/uL (1.4-4.0); Lymphocytes % 9.7 % (21.2-54.2); Mean Corpuscular Hemoglobin 29 PG (27-34); Mean Corpuscular Volume 86.6 FL (87-102); Mean Platelet Volume 11.9 FL (9.6-12.0); Monocytes # 0.3 10*3/uL (0.11-0.8); Monocytes % 5.9 % (1.7-12.7); Neutrophils % 81.6 % (38.7-73.9); Platelet Count 210 T/CUMM (130-400); Red Cell Distribution Width 16.7 % (9.3-17.3); White Blood Count 4.9 T/CUMM (4-12)
--- NOTE | 2017-01-15 12:52 | EKG Report ---
Stationary ECG Study [facility] Test Date: 01/15/2017 12:54:28 PM Pat Name: REGIS BUTLER Department: Room: 282 Gender: M Finish Opener: ANASTACIO : 1940 Requested by: Evelyn Sylvester Order Number: [id number] Reading MD: DAYSI MUNSON Intervals [place] Rate: 77 P: 999 [place]: 0 QRS: 43 QRSD: 103 T: 239 QT: 461 QTc: 493 Interpretive Statements ATRIAL FIBRILLATION SEPTAL MYOCARDIAL INFARCTION, OLD MODERATE T-WAVE ABNORMALITY Electronically Signed On 01-16-17 05:36:03 CDT by DAYSI MUNSON [email or web address]
[2017-01-15 13:14] LABS: Folate 18.4 NG/ML (5.4-24.0); Vitamin B12 248 PG/ML (211-911)
[2017-01-15 13:40] LABS: Sedimentation Rate-Westergren 115 MM/HR (0-20)
--- NOTE | 2017-01-15 15:13 | Gastrointestinal Consult Note ---
<Amie Giraldo Adela - Last Filed: 01/15/17 15:06> Assessment and Plan (1) Anemia Status: Acute Assessment and plan: 01/15-admitted with shortness of breath and findings of anemia with hemoglobin 7 at outside facility. Transferred to our facility and transfuse 3 units packed red blood cells with H&H now 04/23. History of iron deficiency anemia and receives iron infusions with last one 2 months ago. Reports dark stools however own long-term iron therapy. Obtain endoscopy records from [facility]. Check stools for occult blood. Further plan an addendum to follow by Dr. Suh. Current Visit: Yes Qualifiers: Anemia type: iron deficiency History of Present Illness Chief complaint: Anemia History of present illness: Mr. Pa is a 76 year old male who was admitted to the hospital on yesterday after presenting to [facility] with complaints of shortness of breath and fatigue. Patient has a prior history of aortic stenosis, CAD with recent stent placement in August of this year, COPD, diabetes mellitus, gastroparesis, hypertension, ischemic cardiomyopathy, and multiple myeloma. Patient also has a history of iron deficiency anemia and has received iron infusions from Dr. Ryder with his most recent infusion being 2 months ago. Patient states that he has an appointment to see Dr. Ryder in 2 weeks. He states he has not been feeling well the past few days and he presented to the [facility] where he was found to have an H&H of 01/14. Patient was then transferred to our facility for further care due to his complex medical history. Patient denies to me during visit any recent epigastric pain. He states that he has had dark stools however he has had these for a long time since he has been on the oral iron therapy. He denies any hematochezia, nausea or vomiting. He denies taking any NSAIDs. He states that his weight has fluctuated however he contributes this to his edema and taking his Lasix. He denies any reflux, dysphagia, dyspepsia, or increased belching and bloating. He denies any abdominal pain. States he has had some issues with his bowel movements and constipation for a long period of time and unable to regulate this at home without taking an enema frequently. He is noted to be on aspirin and Plavix following his stent placement. He has a history of gastroparesis but states this is been fairly well controlled and only takes Zofran as needed for episodes of nausea. He has been transfused 3 units of packed red blood cells since admission. H&H is currently 04/23. He has had prior endoscopy done by Dr. Suh at the endoscopic clinic in the last 2-3 years in which he reports no acute findings. Stool for occult blood is pending, however patient has not had bowel movement in 3 days. Home Medications Medication Instructions Recorded Confirmed Type Aspirin [Ecotrin] 81 mg PO BEDTIME 08/28/16 01/13/17 History LORazepam [Ativan] 2 mg PO Q6HR 08/28/16 01/14/17 History Magnesium Chloride [Slow Mag] 64 mg PO DAILY 08/28/16 01/14/17 History Melatonin/Pyridoxine HCl (B6) 3 mg PO BEDTIME 08/28/16 01/13/17 History [Melatonin 3 mg Tablet] OLANZapine TAB [ZyPREXA Tab] 5 mg PO BEDTIME 08/28/16 01/14/17 History Omeprazole [Prilosec] 20 mg PO DAILY 08/28/16 01/14/17 History Ranolazine [Ranexa] 500 mg PO BID 08/28/16 01/14/17 History Rosuvastatin [Crestor] 10 mg PO BEDTIME 08/28/16 01/14/17 History glyBURIDE/METFORMIN 5-500 1,000 mg PO BID 08/28/16 01/13/17 History [Glucovance 5-500] Amiodarone Tab [Cordarone Tab] 200 mg PO BEDTIME 01/14/17 01/14/17 History Clopidogrel [Plavix] 75 mg PO DAILY 01/14/17 01/14/17 History Docusate Sodium [Colace] 100 mg PO BEDTIME 01/14/17 01/14/17 History Ferrous Sulfate 325 mg PO Q12HR 01/14/17 01/14/17 History Furosemide Tab [Lasix Tab] 20 mg PO DAILY 01/14/17 01/14/17 History Nebivolol [Bystolic] 5 mg PO DAILY 01/14/17 01/14/17 History Polyethylene Glycol Powder 17 gm PO BEDTIME 01/14/17 01/14/17 History [Miralax] Potassium Chloride 20 meq PO DAILY 01/14/17 01/14/17 History Promethazine Tab [Phenergan Tab] 25 mg PO Q4H PRN 01/14/17 01/14/17 History traZODone [Desyrel] 100 mg PO BEDTIME 01/14/17 01/14/17 History Allergies Allergy/AdvReac Type Severity Reaction Status Date / Time No Known Allergies Allergy Unverified 08/28/16 03:04 Medical,Surgical,& Family Hx - Medical History Cardio: History of: Cardiac Dysrhythmia, CAD, Hypertension, Valvular Heart Disease HEENT: History of: Ear Problem (EAR INFECTIONS, CAUSING HEARING LOSS) Endocrine: History of: Diabetes Mellitus (NIDDM) Respiratory: History of: Obstructive Sleep Apnea Gastrointestinal: History of: GI Problems (CONSTIPATION) Hematology: History of: Anemia, Hematologic Cancer (Multiple myeloma) - Surgical History Cardiac Surgeries: Sugical HX of: Cardiac Catheterization, Cardiac Surgery (CABG ), Carotid Endarterectomy (LEFT) HEENT Surgeries: Surgical HX of: Carotid Endarterectomy (LEFT) Abdominal Surgeries: Surgical HX of: Cholecystectomy Orthopedic Surgeries: Surgical HX of;: Total Knee Replacement (RIGHT AND LEFT) - Social History Smoking Status: Current every day smoker Frequency of Alcohol Use: None Type of Drug Use: None 12 point system: reviewed and no additional remarkable complaints except as stated - Constitutional Constitutional: Present: as per HPI - EENT Eyes: Present: as per HPI Ears: Present: as per HPI Nose, mouth and throat: Present: as per HPI - Cardiovascular Cardiovascular: Present: as per HPI - Respiratory Respiratory: Present: as per HPI, dyspnea - Gastrointestinal Gastrointestinal: Present: as per HPI - Genitourinary Genitourinary: Present: as per HPI - Musculoskeletal Musculoskeletal: Present: as per HPI - Neurological Neurological: Present: as per HPI - Psychiatric Psychiatric: Present: as per HPI - Endocrine Endocrine: Present: as per HPI - Hematologic/Lymphatic Hematologic/Lymphatic: Present: as per HPI Exam - Constitutional Vitals: Period Temp Pulse Resp BP Sys/Khan Pulse Ox Last 24 Hr 97.2 F-99.7 F 70-86 16-20 110-152/57-74 91-96 General appearance: normal weight, no acute distress - Head Head exam: Present: normal inspection, normocephalic - Eye Eye exam: Present: other (Lids and conjunctivae are unremarkable). Absent: scleral icterus - ENT ENT exam: Present: normal exam, normal oropharynx - Neck Neck exam: Present: normal inspection - Respiratory Respiratory exam: Present: clear to auscultation bilaterally. Absent: rales, rhonchi, wheezes - Cardiovascular Cardiovascular exam: Present: regular rate and rhythm. Absent: diastolic murmur , JVD, systolic murmur - GI/Abdominal GI/Abdominal exam: Present: normal bowel sounds, soft. Absent: ascites, distended, mass, organomegaly, tenderness - Extremities Exam Extremities exam: Present: normal inspection, full ROM - Back Exam Back exam: Present: normal inspection - Neurological Exam Neurological exam: Present: alert, oriented X3 - Psychiatric Psychiatric exam: Present: normal affect, normal mood - Skin Skin exam: Present: normal color, warm, dry Results - Labs CBC & BMP: 01/15/17 11:36 01/15/17 05:09 Lab Results: I have reviewed the past 24 hour labs <Ras Suh - Last Filed: 01/15/17 17:25> History of Present Illness History of present illness: Mr. Pa is a 76 year old male Exam - Constitutional Vitals: Period Temp Pulse Resp BP Sys/Khan Pulse Ox Last 24 Hr 97.2 F-99.7 F 73-89 16-20 110-152/57-75 91-96 Results - Labs CBC & BMP: 01/15/17 11:36 01/15/17 05:09
[2017-01-15] MEDS ORDERED: LACTULOSE 20 GM/30 ML UDCUP PO ONE (15:18)
[2017-01-15] MEDS: INSULIN REGULAR 100 UNIT/ML SUBCUT SCH ×2 (17:51→21:47)
[2017-01-15 19:26] LABS: Troponin I Only 0.058 NG/ML (0.00-0.045)
[2017-01-15] MEDS ORDERED: POLYETHYLENE GLYCOL POWDER 17 GM PACK PO SCH (21:00)
[2017-01-15] MEDS: ASPIRIN CHEW 81 MG TABLET PO SCH (21:23)
[2017-01-15] MEDS: DOCUSATE SODIUM 100 MG CAPSULE PO SCH (21:25)
[2017-01-15] MEDS: AMIODARONE 200 MG TABLET PO SCH (21:26)
[2017-01-15] MEDS: ROSUVASTATIN 10 MG TABLET PO SCH (21:26)
[2017-01-15] MEDS: traZODone 50 MG TABLET PO SCH (21:26)
[2017-01-15] MEDS: MELATONIN 3 MG TABLET PO SCH (21:26)
[2017-01-15] MEDS: OLANZapine 5 MG TABLET PO SCH (21:26)
[2017-01-16 06:12] LABS: Basophils % 0.8 % (0.0-0.8); Eosinophils # 0.1 10*3/uL (0.0-0.87); Eosinophils % 2.8 % (0.00-10.9); Hematocrit 27.7 VOL% (42.0-52.0); Immature Granulocytes % 0.6 %; Immature Granulocytes Absolute 0.02 #; Lymphocytes # 0.7 10*3/uL (1.4-4.0); Mean Corpuscular HGB Conc 32.5 GM/DL (32-36); Mean Corpuscular Hemoglobin 28 PG (27-34); Mean Corpuscular Volume 86.6 FL (87-102); Mean Platelet Volume 12.3 FL (9.6-12.0); Monocytes # 0.3 10*3/uL (0.11-0.8); Monocytes % 7.5 % (1.7-12.7); Neutrophils # 2.5 10*3/uL (1.4-7.4); Neutrophils % 69.3 % (38.7-73.9); Platelet Count 196 T/CUMM (130-400); Red Cell Distribution Width 16.6 % (9.3-17.3); White Blood Count 3.6 T/CUMM (4-12)
[2017-01-16 06:48] LABS: Calcium 8.6 MG/DL (8.5-10.1); Magnesium 2.2 MG/DL (1.8-2.4); Osmolality,Calculated 281.3 MOS/KG (273-304); Potassium 4.1 MMOL/L (3.5-5.1)
[2017-01-16 06:49] LABS: Risk Ratio 2.21; VLDL CHOLESTEROL 21.6 MG/DL
[2017-01-16 07:13] LABS: Hemoglobin A1 (Alkaline) 97.4 % (96.5-98.5); Hemoglobin A2 (Alkaline) 2.6 % (1.5-3.5)
[2017-01-16 08:46] VITALS: BP 142/71
[2017-01-16] MEDS: INSULIN REGULAR 100 UNIT/ML SUBCUT SCH (08:56)
[2017-01-16] MEDS ORDERED: LOSARTAN 25 MG TABLET PO SCH (09:00)
[2017-01-16] MEDS: FUROSEMIDE 20 MG TABLET PO SCH (09:46)
[2017-01-16] MEDS: glyBURIDE/METFORMIN 5-500 MG TABLET PO SCH (09:46)
[2017-01-16] MEDS: MAGNESIUM CHLORIDE 64 MG TABLET PO SCH (09:47)
[2017-01-16] MEDS: FERROUS SULFATE 325 MG TABLET PO SCH (09:47)
[2017-01-16] MEDS: PANTOPRAZOLE 40 MG TABLET PO SCH (09:47)
[2017-01-16] MEDS: POTASSIUM CHLORIDE 20 MEQ TABLET PO SCH (09:47)
[2017-01-16] MEDS: RANOLAZINE 500 MG TABLET PO SCH (09:48)
[2017-01-16] MEDS: CLOPIDOGREL 75 MG TABLET PO SCH (09:48)
[2017-01-16] MEDS: NEBIVOLOL 5 MG TABLET PO SCH (09:48)
--- NOTE | 2017-01-16 10:04 | Gastrointestinal Progress Note ---
<EnzoAmie Adela - Last Filed: 01/16/17 10:01> Assessment and Plan (1) Anemia Status: Acute Assessment and plan: 01/16-HH down slightly 03/21. No overt bleeding. Stools for occult blood 3+ positive. See plans below for followup with Dr Ryder. Plan and addendum to follow by Dr Suh. 01/15-admitted with shortness of breath and findings of anemia with hemoglobin 7 at outside facility. Transferred to our facility and transfuse 3 units packed red blood cells with H&H now 04/23. History of iron deficiency anemia and receives iron infusions with last one 2 months ago. Reports dark stools however own long-term iron therapy. Obtain endoscopy records from [facility]. Check stools for occult blood. Further plan an addendum to follow by Dr. Suh. Qualifiers: Anemia type: iron deficiency Gastroenterology - PN: Subj Interval history: CC: Anemia Patient is seen, awake and alert sitting up in bed with at bedside. States he was up all night with frequent bowel movements following the administration of a laxative on yesterday. He does deny any overt bleeding associated with these bowel movements. He is noted to be 3+ positive stools for occult blood as well. He denies any abdominal pain, nausea or vomiting. He is tolerating his diet well. H&H is down slightly today to 03/21. Patient's ferritin level and yesterday noted to be 44.8. He has an appointment with Dr. Ryder in the next 3-4 weeks however nursing staff will contact his office to inform of his admission as well as to verify if appointment needs to be moved to a sooner date. Abdomen is soft, nontender. ROS: Denies shortness of breath or chest pain Exam (Progress Note) - Constitutional Vitals: Period Temp Pulse Resp BP Sys/Khan Pulse Ox Last 24 Hr 97.6 F-98.5 F 75-91 16-22 103-142/57-75 95-100 General appearance: normal weight, no acute distress - Head Head exam: Present: normal inspection, normocephalic - Eye Eye exam: Present: other (Lids and conjunctive are unremarkable). Absent: scleral icterus - ENT ENT exam: Present: normal exam, normal oropharynx - Neck Neck exam: Present: normal inspection - Respiratory Respiratory exam: Present: clear to auscultation bilaterally. Absent: rales, rhonchi, wheezes - Cardiovascular Cardiovascular exam: Present: regular rate and rhythm. Absent: diastolic murmur , JVD, systolic murmur - GI/Abdominal GI/Abdominal exam: Present: normal bowel sounds, soft. Absent: ascites, distended, mass, organomegaly, tenderness (lids and conjunctiva unremarkable) - Extremities Exam Extremities exam: Present: normal inspection, full ROM - Back Exam Back exam: Present: normal inspection - Neurological Exam Neurological exam: Present: alert, oriented X3 - Psychiatric Psychiatric exam: Present: normal affect, normal mood - Skin Skin exam: Present: normal color, warm, dry Results - Labs CBC & BMP: 01/16/17 05:01 01/16/17 05:01 Lab Results: I have reviewed the past 24 hour labs Specialty Discharge - Follow Up or Referrals Follow up with: Ras Suh MD [Physician] - 2 Weeks Derrek Ryder MD [Family Provider] - (First available appointment for IV iron transfusion and CBC. (Within 1 week)) Vikash Moore MD [Physician] - (Patient will keep appointment with Dr. Moore January 22 with CBC and EKG.) <Ras Suh - Last Filed: 01/16/17 18:14> Exam (Progress Note) - Constitutional Vitals: Period Temp Pulse Resp BP Sys/Khan Pulse Ox Last 24 Hr 97.6 F-98.5 F 75-91 20-22 103-142/61-72 98-100 Results - Labs CBC & BMP: 01/16/17 05:01 01/16/17 05:01
--- NOTE | 2017-01-16 11:03 | Discharge Summary ---
Hospital Course - Hospital Course Hospital Course: PCP: Dr. Pereyra Base Filler Operator: Dr. Moore Unit Reactor Operator: Dr. Silvestre Mr. Pa is a 76 year old male previously followed by Dr. Back, now routinely followed by Dr. Moore. Risk factors include: Age, known coronary artery disease (history of CABG in years past), hypertension, dyslipidemia, diffuse peripheral vascular disease, chronic tobacco use, sedentary lifestyle. History of atrial fibrillation (not previously taking NOAC or anti-coagulant due to significant anemia), COPD, multiple myeloma (followed by Dr. Ryder and thought to be well-controlled, has not received treatment in almost 1 year) History of anemia requiring IV iron. History of gastroparesis followed by Dr. Suh. Patient's most recent heart catheterization was performed August 2016. At that time, he received stent to circumflex. He was last seen in the cardiology clinic January 09, 2017. At that time his Brilinta was changed to Plavix as this was thought to possibly be contributing to his dyspnea. He was also sent home with a 48 hour Holter monitor. Patient was transferred to [facility] from [facility] for significant anemia, shortness of breath and atypical chest pain. Patient's shortness of breath was thought to be secondary to his significant anemia. Patient's chest pain was not concerning for angina. He ruled out for GA. EKG unchanged. H&H at [facility] was noted to be 7 and 23. Patient received 3 units of packed red blood cells this hospitalization. H&H post transfusion noted to be 10.0 and 30.3. This morning H&H is noted to be 9.0 and 27.7. Patient is asymptomatic. Blood pressure stable. Stool was checked for occult blood which was 3 positive 3 samples. Gastroenterology was consulted. Patient is routinely followed by Dr. Suh and he feels that patient's anemia is chronic secondary to ongoing GI blood loss from probable angiodysplasia has been maintained outpatient with IV iron infusions. Dr. Suh did not to perform EGD due to dual antiplatelet therapy. His recommendation was to allow him to follow up with Dr. Ryder for iron transfusion and routine CBC in 1 week. He already has appointment scheduled with Dr. Moore January 22 at 330. At that appointment he will need CBC and EKG. he has also be given an appointment with Dr. Suh. P.o. iron and dual antiplatelet therapy will be continued upon discharge. Of note, patient has been in atrial fibrillation this hospitalization. Rate has been controlled. He is currently not on NOAC due to significant anemia. Amiodarone and beta-blockade will be continued at discharge. Patient is extremely anxious for discharge home. Having felt that he has met maximal medical therapy, he will be discharged home in stable condition. Patient to return to the emergency department if condition deteriorates. He verbalized understanding. Patient as well as his both verbalized understanding of discharge instructions and discharge medications. - Time spent with patient Time with patient DS: Greater than 30 minutes Diagnosis - Discharge Diagnosis (1) Anemia Status: Chronic (2) Chest pain Status: Resolved (3) Dyspnea Status: Resolved (4) Gastroparesis Status: Chronic (5) Aortic stenosis Status: Chronic (6) Atrial fibrillation Status: Chronic (7) CAD (coronary artery disease) Status: Chronic (8) COPD (chronic obstructive pulmonary disease) Status: Chronic (9) Diabetes Status: Chronic (10) Dyslipidemia Status: Chronic (11) Hypertension Status: Chronic (12) Ischemic cardiomyopathy Status: Chronic (13) Multiple myeloma Status: Chronic (14) Tobacco abuse Status: Chronic Specialty Discharge - Follow Up or Referrals Follow up with: Vikash Moore MD [Physician] - (Patient will keep appointment with Dr. Moore January 22 with CBC and EKG.) Derrek Ryder MD [Family Provider] - (First available appointment for IV iron transfusion and CBC. (Within 1 week)) Ras Suh MD [Physician] - 2 Weeks Discharge Plan - Discharge Data Disposition: Disch To Home/Self Care Condition at Discharge: Stable Discharge Diet: diabetic diet, heart healthy, low fat, low cholesterol Activity: resume usual activities as tolerated Contact your physician if you experience:: fever over 101, Difficulty voiding, Redness or swelling, Nausea/Vomiting, Shortness of breath, Bleeding, pain uncontrolled by pain medications - Discharge Medications New Losartan [Cozaar] 25 mg PO DAILY #30 tablet Continue Omeprazole [Prilosec] 20 mg PO DAILY Magnesium Chloride [Slow Mag] 64 mg PO DAILY Rosuvastatin [Crestor] 10 mg PO BEDTIME Ranolazine [Ranexa] 500 mg PO BID OLANZapine TAB [ZyPREXA Tab] 5 mg PO BEDTIME Melatonin/Pyridoxine HCl (B6) [Melatonin 3 mg Tablet] 3 mg PO BEDTIME Aspirin [Ecotrin] 81 mg PO BEDTIME Nebivolol [Bystolic] 5 mg PO DAILY Promethazine Tab [Phenergan Tab] 25 mg PO Q4H PRN PRN Reason: Nausea Clopidogrel [Plavix] 75 mg PO DAILY Ferrous Sulfate 325 mg PO Q12HR Polyethylene Glycol Powder [Miralax] 17 gm PO BEDTIME Docusate Sodium [Colace] 100 mg PO BEDTIME Amiodarone Tab [Cordarone Tab] 200 mg PO BEDTIME glyBURIDE/METFORMIN 5-500 [Glucovance 5-500] 1,000 mg PO BID LORazepam [Ativan] 2 mg PO Q6HR Furosemide Tab [Lasix Tab] 20 mg PO DAILY Potassium Chloride 20 meq PO DAILY traZODone [Desyrel] 100 mg PO BEDTIME - Follow Up or Referral - Forms/Instructions Exam - Constitutional Vitals: Period Temp Pulse Resp BP Sys/Khan Pulse Ox Last 24 Hr 97.6 F-98.5 F 75-91 16-22 103-142/57-75 95-100 Exam: General: Appears well with no apparent distress. Pleasant and cooperative. Appears comfortable. HEENT: PERRL, normocephalic, atraumatic. Mucous membranes moist. No jaundice noted. Conjunctiva moist and clear, sclerae anicteric Neck: No JVD/HJR, no thyromegaly or lymphadenopathy noted. No carotid bruit appreciated Cardiac: Irregular rhythm, 2/6 systolic murmur, no gallop, no rub. Lungs: Clear to auscultation throughout. Not requiring oxygen. Abdomen: Soft, bowel sounds normoactive. Nontender and nondistended. No abdominal bruit or thrill noted. No masses noted. Extremities: No clubbing, cyanosis noted. No edema noted. Upper extremity pulses 2+. Lower extremity pulses 2+. Capillary refill less than 3 seconds. Skin: No unusual lesions or rashes. No skin breakdown appreciated. Neuro: Awake, alert and oriented 3. Moves all extremities well without hemiparesis or paralysis. No essential tremor is appreciated. Discharge Results Procedures and tests throughout hospitalization: Pending Orders 01/17/17 04:00 BMP w/ Mg [Basic Metabolic Panel w/Mg] IN AM CBC [Comp Blood Count Auto Diff] IN AM 01/18/17 04:00 BMP w/ Mg [Basic Metabolic Panel w/Mg] IN AM CBC [Comp Blood Count Auto Diff] IN AM 01/19/17 04:00 BMP w/ Mg [Basic Metabolic Panel w/Mg] IN AM CBC [Comp Blood Count Auto Diff] IN AM Labs on day of discharge: Labs from last 24 hours 01/16/17 01/16/17 01/16/17 07:49 05:01 05:01 WBC 3.6 L RBC 3.20 L Hgb 9.0 L Hct 27.7 L MCV 86.6 L MCH 28 MCHC 32.5 RDW 16.6 Plt Count 196 MPV 12.3 H Neut % (Auto) 69.3 Lymph % (Auto) 19.0 L [place] % (Auto) 7.5 Eos % (Auto) 2.8 Baso % (Auto) 0.8 Neut # (Auto) 2.5 Lymph # (Auto) 0.7 L [place] # (Auto) 0.3 Eos # (Auto) 0.1 Baso # (Auto) 0.0 Immature Gran % 0.6 Nucleated RBC % 0.0 Immature Gran # 0.02 Nucleated RBCs # 0.00 Anemia Panel Interp ESR Westergren Absolute Retic Percent Retic Retic Hgb Equivalent Hemoglobin A1 Hemoglobin A2 Hemoglobin C Hemoglobin D Hemoglobin E Hemoglobin F (ELP) Hemoglobin G Hemoglobin S Hgb ELP Interp Sodium 141 Potassium 4.1 Chloride 107 Carbon Dioxide 27 Anion Gap 11.1 BUN 15 Creatinine 1.00 GFR Calculation 90 BUN/Creatinine Ratio 15.00 Glucose 97 POC Glucose 125 H Calculated Osmolality 281.3 Calcium 8.6 Magnesium 2.2 Ferritin Total Creatine Kinase CK-MB (CK-2) Troponin I Triglycerides Cholesterol LDL Cholesterol VLDL Cholesterol HDL Cholesterol Heart Disease Risk Ratio Vitamin B12 Folate RAJI (IgG-AHG) RAJI, Polyspecific 01/16/17 01/15/17 01/15/17 05:01 21:23 18:39 WBC RBC Hgb Hct MCV MCH MCHC RDW Plt Count MPV Neut % (Auto) Lymph % (Auto) [place] % (Auto) Eos % (Auto) Baso % (Auto) Neut # (Auto) Lymph # (Auto) [place] # (Auto) Eos # (Auto) Baso # (Auto) Immature Gran % Nucleated RBC % Immature Gran # Nucleated RBCs # Anemia Panel Interp ESR Westergren Absolute Retic Percent Retic Retic Hgb Equivalent Hemoglobin A1 Hemoglobin A2 Hemoglobin C Hemoglobin D Hemoglobin E Hemoglobin F (ELP) Hemoglobin G Hemoglobin S Hgb ELP Interp Sodium Potassium Chloride Carbon Dioxide Anion Gap BUN Creatinine GFR Calculation BUN/Creatinine Ratio Glucose POC Glucose 202 H Calculated Osmolality Calcium Magnesium Ferritin Total Creatine Kinase 45 D CK-MB (CK-2) 1.8 Troponin I 0.058 H D Triglycerides 108 Cholesterol 95 LDL Cholesterol 36.0 VLDL Cholesterol 21.6 HDL Cholesterol 43 Heart Disease Risk Ratio 2.21 Vitamin B12 Folate RAJI (IgG-AHG) RAJI, Polyspecific 01/15/17 01/15/17 01/15/17 15:18 11:36 11:36 WBC RBC Hgb Hct MCV MCH MCHC RDW Plt Count MPV Neut % (Auto) Lymph % (Auto) [place] % (Auto) Eos % (Auto) Baso % (Auto) Neut # (Auto) Lymph # (Auto) [place] # (Auto) Eos # (Auto) Baso # (Auto) Immature Gran % Nucleated RBC % Immature Gran # Nucleated RBCs # Anemia Panel Interp ESR Westergren Absolute Retic Percent Retic Retic Hgb Equivalent Hemoglobin A1 97.4 Hemoglobin A2 2.6 Hemoglobin C Not Reportable Hemoglobin D Not Reportable Hemoglobin E Not Reportable Hemoglobin F (ELP) Not Reportable Hemoglobin G Not Reportable Hemoglobin S Not Reportable Hgb ELP Interp See comment Sodium Potassium Chloride Carbon Dioxide Anion Gap BUN Creatinine GFR Calculation BUN/Creatinine Ratio Glucose POC Glucose 190 H Calculated Osmolality Calcium Magnesium Ferritin Total Creatine Kinase CK-MB (CK-2) Troponin I Triglycerides Cholesterol LDL Cholesterol VLDL Cholesterol HDL Cholesterol Heart Disease Risk Ratio Vitamin B12 248 Folate 18.4 RAJI (IgG-AHG) Negative RAJI, Polyspecific Negative 01/15/17 01/15/17 01/15/17 11:36 11:36 11:36 WBC 4.9 RBC 3.50 L Hgb 10.0 L Hct 30.3 L MCV 86.6 L MCH 29 MCHC 33.0 RDW 16.7 Plt Count 210 MPV 11.9 Neut % (Auto) 81.6 H Lymph % (Auto) 9.7 L [place] % (Auto) 5.9 Eos % (Auto) 1.6 Baso % (Auto) 0.4 Neut # (Auto) 4.0 Lymph # (Auto) 0.5 L [place] # (Auto) 0.3 Eos # (Auto) 0.1 Baso # (Auto) 0.0 Immature Gran % 0.8 Nucleated RBC % 0.0 Immature Gran # 0.04 Nucleated RBCs # 0.00 Anemia Panel Interp See comment ESR Westergren 115 H Absolute Retic 0.1 Percent Retic 2.3 H Retic Hgb Equivalent 23.0 L Hemoglobin A1 Hemoglobin A2 Hemoglobin C Hemoglobin D Hemoglobin E Hemoglobin F (ELP) Hemoglobin G Hemoglobin S Hgb ELP Interp Sodium Potassium Chloride Carbon Dioxide Anion Gap BUN Creatinine GFR Calculation BUN/Creatinine Ratio Glucose POC Glucose Calculated Osmolality Calcium Magnesium Ferritin 44.8 Total Creatine Kinase 27 L CK-MB (CK-2) 1.3 Troponin I 0.041 Triglycerides Cholesterol LDL Cholesterol VLDL Cholesterol HDL Cholesterol Heart Disease Risk Ratio Vitamin B12 Folate RAJI (IgG-AHG) RAJI, Polyspecific 01/15/17 11:30 WBC RBC Hgb Hct MCV MCH MCHC RDW Plt Count MPV Neut % (Auto) Lymph % (Auto) [place] % (Auto) Eos % (Auto) Baso % (Auto) Neut # (Auto) Lymph # (Auto) [place] # (Auto) Eos # (Auto) Baso # (Auto) Immature Gran % Nucleated RBC % Immature Gran # Nucleated RBCs # Anemia Panel Interp ESR Westergren Absolute Retic Percent Retic Retic Hgb Equivalent Hemoglobin A1 Hemoglobin A2 Hemoglobin C Hemoglobin D Hemoglobin E Hemoglobin F (ELP) Hemoglobin G Hemoglobin S Hgb ELP Interp Sodium Potassium Chloride Carbon Dioxide Anion Gap BUN Creatinine GFR Calculation BUN/Creatinine Ratio Glucose POC Glucose 245 H Calculated Osmolality Calcium Magnesium Ferritin Total Creatine Kinase CK-MB (CK-2) Troponin I Triglycerides Cholesterol LDL Cholesterol VLDL Cholesterol HDL Cholesterol Heart Disease Risk Ratio Vitamin B12 Folate RAJI (IgG-AHG) RAJI, Polyspecific DS: Provider Date of admission: 01/13/17 20:38 Primary care physician: . No PCP Attending physician on admission: Christopher Johnson MD Consults: 01/15/17 11:46 Consult to Physician [CONS] Routine Comment: anemia Consulting Provider: Ras Suh Consult to Specialist Group: Gastroenterology When should Consulting Provider be notified: Now Person Notified: Malu Date Notified: 01/15/17 Time Notified: 14:35 Discharging clinician: Evelyn Sylvester NP Expected date of discharge: 01/16/17
== END 2017-01-16 12:05 | disposition home or self-care (01) | DRG 812 ==
LOC: EDUNIT# → EDBD → N.ED 18:46 → N.EDINP 20:38 → N.TELEN 21:00
PROVIDERS: ADMIT Internal Medicine Cardiovascular Disease; ATTEND Internal Medicine Cardiovascular Disease

== ENCOUNTER 2018-04-11 20:26 | Inpatient (IN) ==
[2018-04-11] MEDS ORDERED: FUROSEMIDE 100 MG/10 ML VIAL IV STA (21:14)
[2018-04-11] MEDS ORDERED: ONDANSETRON 4 MG/2 ML VIAL IV STA (21:14)
[2018-04-11] MEDS ORDERED: ALBUTEROL/IPRATROPIUM 3 ML NEB RESP TX STA (21:14)
[2018-04-11 21:23] LABS: Basophils # 0.1 10*3/uL (0.0-0.2); Basophils % 0.8 % (0.0-0.8); Eosinophils # 0.1 10*3/uL (0.0-0.87); Hemoglobin 11.8 GM/DL (14.0-18.0); Immature Granulocytes % 0.7 %; Immature Granulocytes Absolute 0.05 #; Lymphocytes # 0.6 10*3/uL (1.4-4.0); Lymphocytes % 8.5 % (21.2-54.2); Mean Corpuscular HGB Conc 32.8 GM/DL (32-36); Mean Corpuscular Hemoglobin 30 PG (27-34); Mean Corpuscular Volume 92.3 FL (87-102); Monocytes # 0.2 10*3/uL (0.11-0.8); Monocytes % 3.3 % (1.7-12.7); Neutrophils # 6.3 10*3/uL (1.4-7.4); Neutrophils % 85.7 % (38.7-73.9); Red Cell Distribution Width 14.4 % (9.3-17.3); White Blood Count 7.3 T/CUMM (4-12)
[2018-04-11 21:31] LABS: Platelet Count 83 T/CUMM (130-400)
[2018-04-11 21:35] LABS: Albumin 3.8 G/DL (3.4-5.0); Bilirubin,Total 0.4 MG/DL (0.2-1.0); Calcium 8.7 MG/DL (8.5-10.1); Osmolality,Calculated 285.3 MOS/KG (273-304); Total Protein 6.8 G/DL (6.4-8.3)
[2018-04-11 21:47] LABS: PT Patient Result 10.1 SECS
[2018-04-11] MEDS ORDERED: ALBUTEROL/IPRATROPIUM 3 ML NEB RESP TX PRN (22:53)
[2018-04-11] MEDS ORDERED: POTASSIUM CHLORIDE 20 MEQ TABLET PO PRN (22:53)
[2018-04-11] MEDS ORDERED: DEXTROSE 50% 25 GM/50 ML VIAL IV PRN (22:53)
[2018-04-11] MEDS ORDERED: MAGNESIUM SULF RIDER 2 GM in PREMIX 1 EACH IV PRN (22:53)
[2018-04-11] MEDS ORDERED: MAGNESIUM SULF RIDER 4 GM in PREMIX 1 EACH IV PRN (22:53)
[2018-04-11] MEDS ORDERED: GLUCAGON 1 MG VIAL IM PRN (22:53)
[2018-04-11] MEDS: methylPREDNISolone SOD SUC 40 MG/1 ML VIAL IV SCH (23:18)
[2018-04-11] MEDS: ENOXAPARIN 100 MG/ML SYRINGE SUBCUT SCH (23:20)
[2018-04-11 23:56] LABS: Troponin I 0.074 NG/ML (0.00-0.045)
[2018-04-12 00:12] LABS: Elliptocytes Few; Platelet Estimate Decreased
[2018-04-12] MEDS: NITROGLYCERIN 2% OINT 1 INCH/GM PACK TOP SCH ×5 (00:22→23:58)
[2018-04-12 04:41] LABS: Basophils % 0.6 % (0.0-0.8); Eosinophils % 0.4 % (0.00-10.9); Hematocrit 33.6 VOL% (42.0-52.0); Immature Granulocytes % 0.4 %; Immature Granulocytes Absolute 0.02 #; Lymphocytes # 0.3 10*3/uL (1.4-4.0); Lymphocytes % 6.8 % (21.2-54.2); Mean Corpuscular HGB Conc 32.7 GM/DL (32-36); Mean Corpuscular Hemoglobin 30 PG (27-34); Mean Corpuscular Volume 91.6 FL (87-102); Monocytes # 0.2 10*3/uL (0.11-0.8); Monocytes % 3.6 % (1.7-12.7); Neutrophils # 4.2 10*3/uL (1.4-7.4); Neutrophils % 88.2 % (38.7-73.9); Red Blood Count 3.67 MC/CUMM (3.8-5.5); Red Cell Distribution Width 14.4 % (9.3-17.3); White Blood Count 4.7 T/CUMM (4-12)
[2018-04-12 04:58] LABS: Platelet Count 76 T/CUMM (130-400)
[2018-04-12 05:05] LABS: Anisocytosis 1+; Platelet Estimate Decreased
[2018-04-12 05:10] LABS: Albumin 3.4 G/DL (3.4-5.0); Bilirubin,Total 0.7 MG/DL (0.2-1.0); Calcium 8.9 MG/DL (8.5-10.1); Osmolality,Calculated 290.1 MOS/KG (273-304); Potassium 4.5 MMOL/L (3.5-5.1); Risk Ratio 2.65; Total Protein 6.7 G/DL (6.4-8.3); VLDL CHOLESTEROL 15.4 MG/DL
[2018-04-12] MEDS: ONDANSETRON 4 MG/2 ML VIAL IV PRN ×2 (06:52→22:16)
[2018-04-12 07:20] LABS: Troponin I 0.048 NG/ML (0.00-0.045)
[2018-04-12] MEDS ORDERED: LORazepam 1 MG TABLET PO PRN (07:24)
[2018-04-12] MEDS ORDERED: PROMETHAZINE 25 MG TABLET PO PRN (07:24)
[2018-04-12] MEDS ORDERED: POTASSIUM CHLORIDE 20 MEQ TABLET PO ONE (07:57)
[2018-04-12] MEDS ORDERED: FUROSEMIDE 20 MG/2 ML VIAL IV SCH (08:00)
[2018-04-12] MEDS: methylPREDNISolone SOD SUC 40 MG/1 ML VIAL IV SCH (08:50)
[2018-04-12] MEDS: NEBIVOLOL 5 MG TABLET PO SCH (08:51)
[2018-04-12] MEDS: LOSARTAN 25 MG TABLET PO SCH (08:51)
[2018-04-12] MEDS: FERROUS SULFATE 325 MG TABLET PO SCH ×2 (08:51→20:43)
[2018-04-12] MEDS: glyBURIDE 5 MG TABLET PO SCH ×2 (08:51→16:54)
[2018-04-12] MEDS: FUROSEMIDE 40 MG/4 ML VIAL IV SCH ×2 (08:51→16:55)
[2018-04-12] MEDS: MAGNESIUM CHLORIDE 64 MG TABLET PO SCH (08:51)
[2018-04-12] MEDS: PANTOPRAZOLE 40 MG TABLET PO SCH (08:51)
[2018-04-12] MEDS: INSULIN REGULAR 100 UNIT/ML SUBCUT SCH ×4 (08:52→20:43)
[2018-04-12] MEDS ORDERED: PANTOPRAZOLE 40 MG TABLET PO SCH (09:00)
[2018-04-12] MEDS ORDERED: ASPIRIN EC 325 MG TABLET PO SCH (09:00)
[2018-04-12] MEDS: ENOXAPARIN 100 MG/ML SYRINGE SUBCUT SCH (10:18)
[2018-04-12] MEDS: POTASSIUM CHLORIDE 20 MEQ TABLET PO SCH (10:18)
[2018-04-12] MEDS ORDERED: ENOXAPARIN 40 MG/0.4 ML SYRINGE SUBCUT SCH (13:30)
[2018-04-12 15:06] LABS: Troponin I 0.036 NG/ML (0.00-0.045)
[2018-04-12] MEDS ORDERED: OLANZapine 5 MG TABLET PO SCH (21:00)
[2018-04-12] MEDS ORDERED: PYRIDOXINE HCL PO SCH (21:00)
[2018-04-12] MEDS ORDERED: ROSUVASTATIN 10 MG TABLET PO SCH (21:00)
[2018-04-12] MEDS ORDERED: MELATONIN PO SCH (21:00)
[2018-04-12] MEDS ORDERED: AMIODARONE 200 MG TABLET PO SCH (21:00)
[2018-04-12] MEDS ORDERED: ASPIRIN EC 81 MG TABLET PO SCH (21:00)
[2018-04-12] MEDS ORDERED: POLYETHYLENE GLYCOL POWDER 17 GM PACK PO SCH (21:00)
[2018-04-12] MEDS ORDERED: DOCUSATE SODIUM 100 MG CAPSULE PO SCH (21:00)
[2018-04-13 03:58] LABS: Calcium 8.6 MG/DL (8.5-10.1); Osmolality,Calculated 287.3 MOS/KG (273-304); Potassium 4.4 MMOL/L (3.5-5.1)
[2018-04-13] MEDS: NITROGLYCERIN 2% OINT 1 INCH/GM PACK TOP SCH ×2 (06:10→11:54)
[2018-04-13] MEDS: INSULIN REGULAR 100 UNIT/ML SUBCUT SCH ×2 (08:57→11:53)
[2018-04-13] MEDS: LOSARTAN 25 MG TABLET PO SCH (08:58)
[2018-04-13] MEDS: FUROSEMIDE 40 MG/4 ML VIAL IV SCH (08:58)
[2018-04-13] MEDS: FERROUS SULFATE 325 MG TABLET PO SCH (08:58)
[2018-04-13] MEDS: PANTOPRAZOLE 40 MG TABLET PO SCH (08:58)
[2018-04-13] MEDS: MAGNESIUM CHLORIDE 64 MG TABLET PO SCH (08:58)
[2018-04-13] MEDS: NEBIVOLOL 5 MG TABLET PO SCH (08:59)
[2018-04-13] MEDS: POTASSIUM CHLORIDE 20 MEQ TABLET PO SCH (08:59)
[2018-04-13] MEDS: glyBURIDE 5 MG TABLET PO SCH (09:05)
[2018-04-13 11:43] VITALS: BP 111/56
[2018-04-13 12:12] LABS: Basophils % 0.1 % (0.0-0.8); Hematocrit 39.2 VOL% (42.0-52.0); Hemoglobin 12.9 GM/DL (14.0-18.0); Immature Granulocytes % 0.7 %; Lymphocytes # 0.7 10*3/uL (1.4-4.0); Lymphocytes % 4.9 % (21.2-54.2); Mean Corpuscular HGB Conc 32.9 GM/DL (32-36); Mean Corpuscular Hemoglobin 30 PG (27-34); Mean Corpuscular Volume 91.4 FL (87-102); Monocytes # 0.7 10*3/uL (0.11-0.8); Monocytes % 4.5 % (1.7-12.7); Neutrophils # 13.1 10*3/uL (1.4-7.4); Neutrophils % 89.8 % (38.7-73.9); Platelet Count 114 T/CUMM (130-400); Red Blood Count 4.29 MC/CUMM (3.8-5.5); Red Cell Distribution Width 14.4 % (9.3-17.3); White Blood Count 14.6 T/CUMM (4-12)
[2018-04-13 12:33] LABS: Band Neutrophils 1 % (0-10); Hypochromasia 1+; Lymphocytes 6 % (20-55); Ovalocytes Slight; Platelet Estimate Decreased; Segmented Neutrophils 91 % (50-85); Total Cells Counted 100
== END 2018-04-13 13:18 | disposition home or self-care (01) | DRG 293 ==
LOC: EDBD → EDUNIT# → N.ED 20:26 → N.EDINP 21:18 → N.TELEN 22:11
PROVIDERS: ADMIT Internal Medicine Cardiovascular Disease; ATTEND Internal Medicine Cardiovascular Disease

== ENCOUNTER 2018-06-27 08:15 | Inpatient (IN) ==
[~2018-06-27 08:15] MED LIST: AMIODARONE 200 MG TABLET PO SCH; ASPIRIN EC 81 MG TABLET PO SCH; BUDESONIDE/FORMOTEROL 160-4.5 INHALER 6 GM INH SCH; CHLORHEXIDINE 0.12% ORAL RINSE 60 ML BOTTLE SWISH/SPIT SCH; DEXTROSE 50% 25 GM/50 ML VIAL IV PRN; FUROSEMIDE 40 MG TABLET PO SCH; GLUCAGON 1 MG VIAL IM PRN; LOSARTAN 25 MG TABLET PO SCH; MAG DELAY PO SCH; MAGNESIUM HYDROXIDE SUSP 30 ML UDCUP PO SCH; MONTELUKAST 10 MG TABLET PO SCH; NEBIVOLOL 10 MG TABLET PO SCH; NON-FORMULARY MEDICATION (Lorazepam [Ativan] 2 MG) PO SCH; NON-FORMULARY MEDICATION (Melatonin [Melatonin] 5 MG) PO SCH; NON-FORMULARY MEDICATION (Omeprazole [Omeprazole] 20 MG) PO PRN; OLANZapine 5 MG TABLET PO SCH; POLYETHYLENE GLYCOL POWDER 17 GM PACK PO SCH; POTASSIUM CHLORIDE 20 MEQ TABLET PO SCH; PROMETHAZINE 25 MG TABLET PO PRN; ROSUVASTATIN 10 MG TABLET PO SCH; SODIUM CHLORIDE 0.9% 1,000 ML IV SCH; glyBURIDE 5 MG TABLET PO SCH
[2018-06-27] MEDS ORDERED: PROMETHAZINE 25 MG TABLET PO PRN (10:00)
[2018-06-27 10:24] LABS: Basophils # 0.1 10*3/uL (0.0-0.2); Eosinophils # 0.1 10*3/uL (0.0-0.87); Eosinophils % 1.9 % (0.00-10.9); Hematocrit 33.1 VOL% (42.0-52.0); Hemoglobin 10.6 GM/DL (14.0-18.0); Immature Granulocytes % 0.7 %; Immature Granulocytes Absolute 0.04 #; Lymphocytes # 0.5 10*3/uL (1.4-4.0); Lymphocytes % 9.1 % (21.2-54.2); Mean Corpuscular Hemoglobin 29 PG (27-34); Mean Corpuscular Volume 90.2 FL (87-102); Mean Platelet Volume 11.4 FL (9.6-12.0); Monocytes # 0.5 10*3/uL (0.11-0.8); Monocytes % 7.9 % (1.7-12.7); Neutrophils # 4.6 10*3/uL (1.4-7.4); Neutrophils % 79.4 % (38.7-73.9); Platelet Count 196 T/CUMM (130-400); Red Blood Count 3.67 MC/CUMM (3.8-5.5); Red Cell Distribution Width 13.8 % (9.3-17.3); White Blood Count 5.8 T/CUMM (4-12)
[2018-06-27 10:54] LABS: Alanine Aminotransferase 23 U/L (16-61); Alkaline Phosphatase 43 U/L (45-117); Aspartate Amino Transferase 26 U/L (0-37); Bilirubin,Total < 0.39 MG/DL (0.2-1.0); Calcium 8.9 MG/DL (8.5-10.1)
[2018-06-27 10:55] LABS: Albumin 2.8 G/DL (3.4-5.0); Blood Urea Nitrogen 24 MG/DL (7-18); Glucose 176 MG/DL (74-106); Osmolality,Calculated 284.5 MOS/KG (273-304); Potassium 4.2 MMOL/L (3.5-5.1); Sodium 139 MMOL/L (136-145); Total Protein 7.6 G/DL (6.4-8.3)
[2018-06-27 13:42] LABS: ABG Base Excess 3.5 MMOL/L (-2.5-2.5); ABG HCO3 27.5 MMOL/L (20-26); ABG PH 7.481 (7.35-7.45); Allen Test Positive; Pt O2 Delivery Device Room Air
[2018-06-27] MEDS ORDERED: PANTOPRAZOLE 40 MG TABLET PO PRN (15:00)
[2018-06-27] MEDS ORDERED: DEXTROSE 50% 25 GM/50 ML SYRINGE IV PRN (15:00)
[2018-06-27] MEDS ORDERED: SODIUM CHLORIDE 0.9% 1,000 ML IV SCH (15:00)
[2018-06-27] MEDS ORDERED: GLUCAGON 1 MG VIAL IM PRN (15:00)
[2018-06-27] MEDS: ASPIRIN EC 81 MG TABLET PO SCH (15:19)
[2018-06-27] MEDS: LOSARTAN 25 MG TABLET PO SCH (15:19)
[2018-06-27] MEDS: MAGNESIUM CHLORIDE 64 MG TABLET PO SCH (15:19)
[2018-06-27] MEDS: NEBIVOLOL 5 MG TABLET PO SCH (15:19)
[2018-06-27] MEDS: CHLORHEXIDINE 4% SOLN 118 ML BOTTLE TOP SCH ×2 (15:22→20:20)
[2018-06-27] MEDS: AMIODARONE 200 MG TABLET PO SCH ×2 (16:18→20:20)
[2018-06-27] MEDS: LORazepam 1 MG TABLET PO SCH ×2 (16:18→20:25)
[2018-06-27] MEDS: ROSUVASTATIN 10 MG TABLET PO SCH ×2 (16:19→20:24)
[2018-06-27] MEDS: POTASSIUM CHLORIDE 20 MEQ TABLET PO SCH ×2 (16:20→20:25)
[2018-06-27] MEDS: glyBURIDE 5 MG TABLET PO SCH ×2 (16:20→17:58)
[2018-06-27] MEDS: FUROSEMIDE 40 MG TABLET PO SCH ×2 (16:21→20:20)
[2018-06-27] MEDS: MAGNESIUM HYDROXIDE SUSP 30 ML UDCUP PO SCH ×2 (16:21→20:25)
[2018-06-27] MEDS: MELATONIN 3 MG TABLET PO SCH ×2 (16:21→20:25)
[2018-06-27] MEDS: POLYETHYLENE GLYCOL POWDER 17 GM PACK PO SCH ×2 (16:22→20:26)
[2018-06-27] MEDS: CHLORHEXIDINE 0.12% ORAL RINSE 60 ML BOTTLE SWISH/SPIT SCH ×2 (16:23→20:20)
[2018-06-27] MEDS: MONTELUKAST 10 MG TABLET PO SCH ×2 (16:23→20:24)
[2018-06-27] MEDS: BUDESONIDE/FORMOTEROL 160-4.5 INHALER 6 GM INH SCH ×2 (16:23→20:33)
[2018-06-27] MEDS: OLANZapine 5 MG TABLET PO SCH ×2 (16:24→20:25)
[2018-06-28] MEDS ORDERED: PAPAVERINE 60 MG/2 ML VIAL ONE (04:44)
[2018-06-28] MEDS ORDERED: VANCOMYCIN 1,000 MG VIAL ONE (04:44)
[2018-06-28] MEDS ORDERED: CEFUROXIME INJ 1,500 MG in SYRINGE 1 EACH IV ONE (06:00)
[2018-06-28] MEDS ORDERED: LORazepam 1 MG TABLET PO ONE (06:00)
[2018-06-28] MEDS ORDERED: CEFUROXIME 1,500 MG VIAL ONE (06:54)
[2018-06-28] MEDS ORDERED: NITROPRUSSIDE 50 MG/2 ML VIAL ONE (07:21)
[2018-06-28] MEDS ORDERED: PHENYLEPHRINE DRIP 40 MG/250 ML PREMIX IV ONE (07:21)
[2018-06-28] MEDS ORDERED: CALCIUM CHLORIDE 1,000 MG/10 ML SYRINGE IV ONE (07:22)
[2018-06-28] MEDS ORDERED: POTASSIUM CHLORIDE RIDER 100 ML IV ONE (07:22)
[2018-06-28 07:39] LABS: ABG Base Excess 2.2 MMOL/L (-2.5-2.5); ABG HCO3 26.4 MMOL/L (20-26); ABG Oxygen Saturation 99.8 % (95-100); ABG PCO2 49.2 MM HG (35-48); ABG PH 7.367 (7.35-7.45); ABG TCO2 25.8 MMOL/L (23-27); Glucose Heart Surgery 127 MG/DL (74-106); Hematocrit Heart Surgery 30.3 PERCENT (42-52); Hemoglobin Heart Surgery 9.8 G/DL (14.0-18.0); PCO2 Patient Temp Arterial 49.2 MMHG; PH Patient Temp Arterial 7.367; Patient Temperature 37 CELCIUS; Sodium Heart/CVR 141 MMOL/L (135-145)
[2018-06-28] MEDS: glyBURIDE 5 MG TABLET PO SCH (08:24)
[2018-06-28 08:44] LABS: Apearance,Urine CLEAR (Clear); Bilirubin,Urine Negative (Negative); Blood, Urine Negative (Negative); Glucose,Urine (UA) Negative (Negative); Ketones,Urine Negative (Negative); Nitrite,Urine Negative (Negative); Protein,Urine Negative; RBC,Urine 1 /HPF (0-4); Urine Color Yellow (Yellow); Urine Specific Gravity 1.017 (1.001-1.035); Urine Urobilinogen < 2.0 EU/DL (0.2-1.0); WBC,Urine 1 /HPF (0-6)
[2018-06-28] MEDS: BUDESONIDE/FORMOTEROL 160-4.5 INHALER 6 GM INH SCH (09:55)
[2018-06-28] MEDS: CHLORHEXIDINE 4% SOLN 118 ML BOTTLE TOP SCH (09:56)
[2018-06-28] MEDS: MAGNESIUM CHLORIDE 64 MG TABLET PO SCH (09:56)
[2018-06-28] MEDS: MAGNESIUM HYDROXIDE SUSP 30 ML UDCUP PO SCH (09:56)
[2018-06-28] MEDS: FUROSEMIDE 40 MG TABLET PO SCH (09:56)
[2018-06-28] MEDS: POTASSIUM CHLORIDE 20 MEQ TABLET PO SCH (09:56)
[2018-06-28] MEDS: CHLORHEXIDINE 0.12% ORAL RINSE 60 ML BOTTLE SWISH/SPIT SCH ×2 (09:56→21:26)
[2018-06-28] MEDS: ASPIRIN EC 81 MG TABLET PO SCH (09:57)
[2018-06-28] MEDS: LOSARTAN 25 MG TABLET PO SCH (09:57)
[2018-06-28] MEDS: NEBIVOLOL 5 MG TABLET PO SCH (09:57)
[2018-06-28] MEDS: LORazepam 1 MG TABLET PO SCH (09:57)
[2018-06-28 10:20] LABS: Hematocrit Heart Surgery 25.3 PERCENT (42-52); Hemoglobin Heart Surgery 8.1 G/DL (14.0-18.0); PCO2 Patient Temp Venous 35.5 MM HG; PH Patient Temp Venous 7.497; PO2 Patient Temp Venous 36.4 MM HG; Potassium Heart/CVR 4.4 MMOL/L (3.5-5.1); VBG Base Excess 4.2 MEQ/L (0-4); VBG HCO3 27.9 MEQ/L (24-28); VBG Oxygen Saturation 77.9 %; VBG PCO2 37.3 MMHG (41-51); VBG PH 7.482
[2018-06-28 11:01] LABS: Hematocrit Heart Surgery 19.8 PERCENT (42-52); PCO2 Patient Temp Venous 35.6 MM HG; PH Patient Temp Venous 7.48; PO2 Patient Temp Venous 25.5 MM HG; Potassium Heart/CVR 4.3 MMOL/L (3.5-5.1); VBG HCO3 26.7 MEQ/L (24-28); VBG Oxygen Saturation 54.8 %; VBG PCO2 37.4 MMHG (41-51); VBG PH 7.465; VBG PO2 27.4 MMHG (17-40)
[2018-06-28 11:02] LABS: Hemoglobin Heart Surgery 6.3 G/DL (14.0-18.0)
[2018-06-28 11:25] LABS: Hematocrit Heart Surgery 22.8 PERCENT (42-52); Hemoglobin Heart Surgery 7.3 G/DL (14.0-18.0); PCO2 Patient Temp Venous 33.7 MM HG; PH Patient Temp Venous 7.491; PO2 Patient Temp Venous 35.4 MM HG; Potassium Heart/CVR 4.2 MMOL/L (3.5-5.1); VBG Base Excess 2.6 MEQ/L (0-4); VBG HCO3 26.5 MEQ/L (24-28); VBG Oxygen Saturation 75.7 %; VBG PCO2 35.4 MMHG (41-51); VBG PH 7.476
[2018-06-28 11:54] LABS: Hematocrit Heart Surgery 18.8 PERCENT (42-52); PCO2 Patient Temp Venous 32.5 MM HG; PH Patient Temp Venous 7.523; PO2 Patient Temp Venous 37.3 MM HG; Potassium Heart/CVR 3.5 MMOL/L (3.5-5.1); VBG Base Excess 4.1 MEQ/L (0-4); VBG Oxygen Saturation 85.2 %; VBG PCO2 37.6 MMHG (41-51); VBG PH 7.478; VBG PO2 45.8 MMHG (17-40)
[2018-06-28 12:23] LABS: Hematocrit Heart Surgery 25.8 PERCENT (42-52); Hemoglobin Heart Surgery 8.3 G/DL (14.0-18.0); PCO2 Patient Temp Venous 33.8 MM HG; PH Patient Temp Venous 7.473; PO2 Patient Temp Venous 36.2 MM HG; VBG Base Excess 1.5 MEQ/L (0-4); VBG HCO3 25.5 MEQ/L (24-28); VBG Oxygen Saturation 81.4 %; VBG PCO2 37.3 MMHG (41-51); VBG PH 7.443; VBG PO2 41.6 MMHG (17-40)
[2018-06-28 12:55] LABS: Hematocrit Heart Surgery 24.4 PERCENT (42-52); Hemoglobin Heart Surgery 7.8 G/DL (14.0-18.0); PCO2 Patient Temp Venous 42.1 MM HG; PH Patient Temp Venous 7.424; PO2 Patient Temp Venous 37.7 MM HG; Potassium Heart/CVR 3.9 MMOL/L (3.5-5.1); VBG Base Excess 2.9 MEQ/L (0-4); VBG HCO3 26.7 MEQ/L (24-28); VBG Oxygen Saturation 74.4 %; VBG PCO2 42.1 MMHG (41-51); VBG PH 7.424; VBG PO2 37.7 MMHG (17-40)
[2018-06-28 13:26] LABS: ABG Base Excess 1.4 MMOL/L (-2.5-2.5); ABG HCO3 25.7 MMOL/L (20-26); ABG PCO2 33.3 MM HG (35-48); ABG PH 7.479 (7.35-7.45); ABG TCO2 23.1 MMOL/L (23-27); Glucose Heart Surgery 330 MG/DL (74-106); Hematocrit Heart Surgery 23.5 PERCENT (42-52); Hemoglobin Heart Surgery 7.5 G/DL (14.0-18.0); PCO2 Patient Temp Arterial 33.3 MMHG; PH Patient Temp Arterial 7.479; Patient Temperature 37 CELCIUS; Potassium Heart/CVR 3.7 MMOL/L (3.5-5.1); Sodium Heart/CVR 136 MMOL/L (135-145)
[2018-06-28] MEDS ORDERED: ALBUMIN 25% 25 GM/100 ML VIAL IV ONE (13:37)
[2018-06-28] MEDS ORDERED: MAGNESIUM SULFATE 10 GM/20 ML VIAL IV ONE (13:37)
[2018-06-28] MEDS ORDERED: DEXTROSE 5% KCL 20 MEQ 40 MEQ/2,000 ML BAG IV ONE (13:37)
[2018-06-28] MEDS ORDERED: MANNITOL 100 GM/500 ML BAG IV ONE (13:37)
[2018-06-28] MEDS ORDERED: methylPREDNISolone SOD SUC 1,000 MG/8 ML VIAL ONE (13:37)
[2018-06-28] MEDS ORDERED: HEPARIN 10,000 UNIT/10 ML VIAL ONE (13:37)
[2018-06-28] MEDS ORDERED: SODIUM BICARBONATE 50 MEQ/50 ML SYRINGE IV ONE (13:37)
[2018-06-28] MEDS ORDERED: PROTAMINE SULFATE 250 MG/25 ML VIAL IV ONE (13:37)
[2018-06-28] MEDS ORDERED: FUROSEMIDE 20 MG/2 ML VIAL ONE (13:38)
[2018-06-28] MEDS ORDERED: ALBUMIN 5% 12.5 GM/250 ML VIAL IV ONE (13:55)
[2018-06-28] MEDS: PHENYLEPHRINE DRIP 40 MG/250 ML PREMIX IV PRN ×3 (14:15→22:58)
[2018-06-28] MEDS: SODIUM CHLORIDE 0.45% 1,000 ML IV SCH ×2 (14:15)
[2018-06-28] MEDS: LACTATED RINGERS 1,000 ML IV PRN ×2 (14:15→21:42)
[2018-06-28] MEDS ORDERED: PROTAMINE SULFATE 50 MG/5 ML VIAL IV ONE ×2 (14:30→14:40)
[2018-06-28] MEDS: ALBUMIN 5% 12.5 GM in PREMIX 1 EACH IV PRN ×4 (14:30→21:48)
[2018-06-28] MEDS ORDERED: PHENYLEPHRINE DRIP 20 MG/250 ML PREMIX IV ONE (14:39)
[2018-06-28] MEDS ORDERED: CALCIUM CHLORIDE 1,000 MG/10 ML VIAL IV ONE (14:39)
[2018-06-28] MEDS ORDERED: HEPARIN/NACL 0.9% 2 UNITS/ML 500 ML IV ONE (14:39)
[2018-06-28] MEDS ORDERED: SEVOFLURANE 1 UNIT/15 MINUTE INH ONE (14:39)
[2018-06-28] MEDS ORDERED: NITROGLYCERIN DRIP 50 MG/250 ML BOTTLE IV ONE (14:40)
[2018-06-28] MEDS ORDERED: SUFentanil 250 MCG/5 ML AMP ONE (14:40)
[2018-06-28] MEDS ORDERED: VECURONIUM 10 MG VIAL IV ONE (14:40)
[2018-06-28] MEDS ORDERED: MIDAZOLAM 10 MG/2 ML VIAL ONE ×2 (14:40)
[2018-06-28] MEDS ORDERED: SODIUM CHLORIDE 0.9% 250 ML IV ONE (14:41)
[2018-06-28] MEDS ORDERED: LACTATED RINGERS 1,000 ML IV ONE (14:41)
[2018-06-28] MEDS ORDERED: SODIUM CHLORIDE 0.9% 1,000 ML IV ONE (14:41)
[2018-06-28] MEDS ORDERED: AMINOCAPROIC ACID 5,000 MG/20 ML VIAL IV ONE (14:41)
[2018-06-28] MEDS ORDERED: MIDAZOLAM 10 MG/2 ML VIAL IV PRN (14:44)
[2018-06-28] MEDS ORDERED: MIDAZOLAM 2 MG/2 ML VIAL IV PRN (14:44)
[2018-06-28] MEDS ORDERED: MORPHINE 4 MG/1 ML VIAL IV PRN (14:44)
[2018-06-28] MEDS ORDERED: POTASSIUM CHLORIDE RIDER 10 MEQ in PREMIX 1 EACH IV PRN (14:44)
[2018-06-28] MEDS ORDERED: NITROPRUSSIDE 100 MG in DEXTROSE 5% 250 ML IV PRN (14:44)
[2018-06-28] MEDS ORDERED: VECURONIUM 10 MG VIAL IV PRN ×2 (14:44)
[2018-06-28] MEDS ORDERED: LACTATED RINGERS 250 ML IV PRN (14:44)
[2018-06-28] MEDS ORDERED: MAGNESIUM SULF RIDER 4 GM in PREMIX 1 EACH IV PRN (14:44)
[2018-06-28] MEDS ORDERED: MAGNESIUM SULF RIDER 2 GM in PREMIX 1 EACH IV PRN (14:44)
[2018-06-28] MEDS ORDERED: DEXTROSE 50% 25 GM/50 ML SYRINGE IV PRN ×2 (14:44)
[2018-06-28] MEDS ORDERED: MORPHINE 10 MG/1 ML VIAL IV PRN (14:44)
[2018-06-28] MEDS ORDERED: CALCIUM CHLORIDE 1,000 MG/10 ML SYRINGE IV PRN (14:44)
[2018-06-28] MEDS ORDERED: INSULIN REGULAR 100 UNIT/ML IV ONE (14:44)
[2018-06-28] MEDS ORDERED: ACETAMINOPHEN 650 MG SUPP RECTAL PRN (14:44)
[2018-06-28 14:59] LABS: ABG Base Excess -1.9 MMOL/L (-2.5-2.5); ABG HCO3 22.9 MMOL/L (20-26); ABG Oxygen Saturation 99.7 % (95-100); ABG PCO2 33.5 MM HG (35-48); ABG PH 7.428 (7.35-7.45); Glucose Heart Surgery 340 MG/DL (74-106); Hematocrit Heart Surgery 20.7 PERCENT (42-52); Hemoglobin Heart Surgery 6.6 G/DL (14.0-18.0); Potassium Heart/CVR 4.2 MMOL/L (3.5-5.1)
[2018-06-28 15:02] LABS: Basophils % 0.2 % (0.0-0.8); Eosinophils # 0.1 10*3/uL (0.0-0.87); Eosinophils % 0.5 % (0.00-10.9); Immature Granulocytes % 2.1 %; Immature Granulocytes Absolute 0.19 #; Lymphocytes # 1.1 10*3/uL (1.4-4.0); Lymphocytes % 11.7 % (21.2-54.2); Mean Corpuscular HGB Conc 33.1 GM/DL (32-36); Mean Corpuscular Hemoglobin 30 PG (27-34); Mean Corpuscular Volume 90.9 FL (87-102); Mean Platelet Volume 11.8 FL (9.6-12.0); Monocytes # 0.5 10*3/uL (0.11-0.8); Monocytes % 5.6 % (1.7-12.7); Neutrophils # 7.3 10*3/uL (1.4-7.4); Neutrophils % 79.9 % (38.7-73.9); Platelet Count 186 T/CUMM (130-400); Red Blood Count 1.86 MC/CUMM (3.8-5.5); Red Cell Distribution Width 14.3 % (9.3-17.3); White Blood Count 9.1 T/CUMM (4-12)
[2018-06-28 15:05] LABS: Hematocrit 16.9 VOL% (42.0-52.0); Hemoglobin 5.6 GM/DL (14.0-18.0)
[2018-06-28 15:08] LABS: INR 1.5; PT Patient Result 16.1 SECS; Partial Thromboplastin Time 30.4 SECS (0-40)
[2018-06-28 15:29] LABS: Albumin 2.4 G/DL (3.4-5.0); CKMB % 7.8 %; Calcium 9.9 MG/DL (8.5-10.1); Osmolality,Calculated 293.4 MOS/KG (273-304); Potassium 4.3 MMOL/L (3.5-5.1)
[2018-06-28 15:31] LABS: Troponin I 8.84 NG/ML (0.00-0.045)
[2018-06-28] MEDS: INSULIN REGULAR DRIP 100 ML IV SCH (16:01)
[2018-06-28] MEDS: POTASSIUM CHLORIDE RIDER 20 MEQ in PREMIX 1 EACH IV PRN (16:08)
[2018-06-28] MEDS ORDERED: DOBUTamine 500 MG/250 ML PREMIX IV ONE (16:28)
[2018-06-28] MEDS ORDERED: DOBUTamine 500 MG/250 ML PREMIX IV PRN (16:29)
[2018-06-28 16:40] LABS: VBG Base Excess -6.3 MEQ/L (0-4); VBG HCO3 18.6 MEQ/L (24-28); VBG Oxygen Saturation 51.9 %; VBG PH 7.261; VBG PO2 28.9 MMHG (17-40)
[2018-06-28 17:24] LABS: ABG Base Excess -5.8 MMOL/L (-2.5-2.5); ABG HCO3 19.7 MMOL/L (20-26); ABG Oxygen Saturation 99.6 % (95-100); ABG PCO2 32.4 MM HG (35-48); ABG PH 7.368 (7.35-7.45); Glucose Heart Surgery 349 MG/DL (74-106); Hematocrit Heart Surgery 31.9 PERCENT (42-52); Hemoglobin Heart Surgery 10.3 G/DL (14.0-18.0); Potassium Heart/CVR 4.2 MMOL/L (3.5-5.1)
[2018-06-28] MEDS: INSULIN REGULAR 100 UNIT/ML IV PRN (18:12)
[2018-06-28] MEDS ORDERED: FUROSEMIDE 40 MG/4 ML VIAL IV ONE (18:31)
[2018-06-28] MEDS: FUROSEMIDE 40 MG/4 ML VIAL IV SCH (21:04)
[2018-06-28 22:10] LABS: ABG Base Excess -1.9 MMOL/L (-2.5-2.5); ABG HCO3 22.8 MMOL/L (20-26); ABG Oxygen Saturation 99.4 % (95-100); ABG PCO2 35.4 MM HG (35-48); ABG PH 7.409 (7.35-7.45); ABG TCO2 21.1 MMOL/L (23-27); Glucose Heart Surgery 227 MG/DL (74-106); Hematocrit Heart Surgery 22.6 PERCENT (42-52); Hemoglobin Heart Surgery 7.2 G/DL (14.0-18.0); Potassium Heart/CVR 3.7 MMOL/L (3.5-5.1)
[2018-06-28] MEDS: CEFUROXIME INJ 1,500 MG in SYRINGE 1 EACH IV SCH (22:44)
[2018-06-28 22:59] LABS: CKMB % 6.9 %
[2018-06-28 23:00] LABS: Troponin I 8.08 NG/ML (0.00-0.045)
[2018-06-29] MEDS: POTASSIUM CHLORIDE RIDER 20 MEQ in PREMIX 1 EACH IV PRN ×4 (00:43→19:40)
[2018-06-29] MEDS: HYDROmorphone 2 MG/1 ML VIAL IV PRN ×3 (01:25→08:03)
[2018-06-29 01:51] LABS: ABG HCO3 19.5 MMOL/L (20-26); ABG Oxygen Saturation 99.2 % (95-100); ABG PH 7.336 (7.35-7.45); ABG TCO2 17.8 MMOL/L (23-27); Glucose Heart Surgery 188 MG/DL (74-106); Hematocrit Heart Surgery 28.4 PERCENT (42-52); Hemoglobin Heart Surgery 9.1 G/DL (14.0-18.0); Potassium Heart/CVR 4.2 MMOL/L (3.5-5.1)
[2018-06-29] MEDS: INSULIN REGULAR DRIP 100 ML IV SCH ×2 (02:58→15:20)
[2018-06-29 03:40] LABS: ABG Base Excess -3.7 MMOL/L (-2.5-2.5); ABG HCO3 21.4 MMOL/L (20-26); ABG Oxygen Saturation 99.1 % (95-100); ABG PCO2 38.2 MM HG (35-48); ABG PH 7.357 (7.35-7.45); ABG TCO2 19.6 MMOL/L (23-27); Glucose Heart Surgery 165 MG/DL (74-106); Hematocrit Heart Surgery 29.9 PERCENT (42-52); Hemoglobin Heart Surgery 9.7 G/DL (14.0-18.0); Potassium Heart/CVR 3.6 MMOL/L (3.5-5.1)
[2018-06-29 03:42] LABS: Basophils % 0.2 % (0.0-0.8); Hematocrit 26.7 VOL% (42.0-52.0); Hemoglobin 8.9 GM/DL (14.0-18.0); Immature Granulocytes % 1.1 %; Immature Granulocytes Absolute 0.15 #; Lymphocytes # 0.5 10*3/uL (1.4-4.0); Lymphocytes % 3.6 % (21.2-54.2); Mean Corpuscular HGB Conc 33.3 GM/DL (32-36); Mean Corpuscular Hemoglobin 28 PG (27-34); Mean Platelet Volume 12.3 FL (9.6-12.0); Monocytes # 0.5 10*3/uL (0.11-0.8); Monocytes % 3.9 % (1.7-12.7); Neutrophils # 12.2 10*3/uL (1.4-7.4); Neutrophils % 91.2 % (38.7-73.9); Platelet Count 118 T/CUMM (130-400); Red Blood Count 3.18 MC/CUMM (3.8-5.5); Red Cell Distribution Width 15.3 % (9.3-17.3); White Blood Count 13.3 T/CUMM (4-12)
[2018-06-29] MEDS: FUROSEMIDE 40 MG/4 ML VIAL IV SCH ×6 (04:03→21:28)
[2018-06-29 04:05] LABS: Albumin 3.3 G/DL (3.4-5.0); Bilirubin,Direct 0.49 MG/DL (0.0-0.20); Bilirubin,Total 1.1 MG/DL (0.2-1.0); Calcium 8.3 MG/DL (8.5-10.1); Potassium 3.7 MMOL/L (3.5-5.1); Total Protein 5.6 G/DL (6.4-8.3)
[2018-06-29 04:20] LABS: Hypochromasia Slight; Lymphocytes 3 % (20-55); Platelet Estimate Decreased; Segmented Neutrophils 94 % (50-85); Total Cells Counted 100
[2018-06-29 04:21] LABS: Polychromasia Few
[2018-06-29] MEDS: ALBUMIN 5% 12.5 GM in PREMIX 1 EACH IV PRN (06:14)
[2018-06-29] MEDS ORDERED: PROPOFOL 1,000 MG/100 ML BOTTLE IV ONE (07:39)
[2018-06-29 08:37] LABS: ABG Base Excess -5.8 MMOL/L (-2.5-2.5); ABG HCO3 19.7 MMOL/L (20-26); ABG Oxygen Saturation 99.1 % (95-100); ABG PCO2 42.6 MM HG (35-48); ABG PH 7.291 (7.35-7.45); Glucose Heart Surgery 113 MG/DL (74-106); Hematocrit Heart Surgery 29.9 PERCENT (42-52); Hemoglobin Heart Surgery 9.7 G/DL (14.0-18.0); Potassium Heart/CVR 3.9 MMOL/L (3.5-5.1)
[2018-06-29] MEDS: PROPOFOL 1,000 MG/100 ML BOTTLE IV SCH ×2 (08:49→21:14)
[2018-06-29] MEDS: CHLORHEXIDINE 0.12% ORAL RINSE 60 ML BOTTLE SWISH/SPIT SCH ×2 (08:52→21:15)
[2018-06-29 09:08] LABS: CKMB % 4.4 %
[2018-06-29 09:17] LABS: Troponin I 10.4 NG/ML (0.00-0.045)
[2018-06-29] MEDS ORDERED: SODIUM BICARBONATE 50 MEQ/50 ML SYRINGE IV ONE ×2 (09:24→09:29)
[2018-06-29 10:12] LABS: ABG Base Excess 0.3 MMOL/L (-2.5-2.5); ABG HCO3 24.7 MMOL/L (20-26); ABG Oxygen Saturation 99.4 % (95-100); ABG PCO2 37.8 MM HG (35-48); ABG PH 7.421 (7.35-7.45); ABG TCO2 22.4 MMOL/L (23-27); Glucose Heart Surgery 93 MG/DL (74-106); Hematocrit Heart Surgery 30.1 PERCENT (42-52); Hemoglobin Heart Surgery 9.7 G/DL (14.0-18.0); Potassium Heart/CVR 3.5 MMOL/L (3.5-5.1)
[2018-06-29] MEDS ORDERED: NITROGLYCERIN DRIP 50 MG/250 ML BOTTLE IV ONE (10:31)
[2018-06-29] MEDS ORDERED: NITROGLYCERIN DRIP 50 MG/250 ML BOTTLE IV PRN (10:44)
[2018-06-29] MEDS: CEFUROXIME INJ 1,500 MG in SYRINGE 1 EACH IV SCH ×2 (10:55→22:53)
[2018-06-29] MEDS ORDERED: HALOPERIDOL 5 MG/ML AMP IV PRN (13:17)
[2018-06-29] MEDS: dilTIAZem Drip 125 MG/125 ML PREMIX IV SCH (13:17)
[2018-06-29 15:21] LABS: ABG Base Excess -2.6 MMOL/L (-2.5-2.5); ABG HCO3 22.3 MMOL/L (20-26); ABG Oxygen Saturation 99.3 % (95-100); ABG PCO2 34.3 MM HG (35-48); ABG PH 7.407 (7.35-7.45); ABG TCO2 19.9 MMOL/L (23-27); Glucose Heart Surgery 171 MG/DL (74-106); Hematocrit Heart Surgery 27.9 PERCENT (42-52); Potassium Heart/CVR 4.4 MMOL/L (3.5-5.1)
[2018-06-29] MEDS: SODIUM CHLORIDE 0.45% 1,000 ML IV SCH ×2 (15:27)
[2018-06-29] MEDS: INSULIN REGULAR 100 UNIT/ML IV PRN ×2 (16:10→17:01)
[2018-06-29 17:27] LABS: CKMB % 4.7 %
[2018-06-29 17:31] LABS: Troponin I 5.95 NG/ML (0.00-0.045)
[2018-06-29 19:31] LABS: ABG Base Excess -2.1 MMOL/L (-2.5-2.5); ABG HCO3 22.7 MMOL/L (20-26); ABG Oxygen Saturation 99.3 % (95-100); ABG PCO2 34.9 MM HG (35-48); ABG PH 7.409 (7.35-7.45); ABG TCO2 20.3 MMOL/L (23-27); Glucose Heart Surgery 175 MG/DL (74-106); Hematocrit Heart Surgery 28.2 PERCENT (42-52); Hemoglobin Heart Surgery 9.1 G/DL (14.0-18.0); Potassium Heart/CVR 4.2 MMOL/L (3.5-5.1)
[2018-06-30] MEDS ORDERED: HEPARIN/NACL 0.9% 2 UNITS/ML 500 ML IV ONE (00:49)
[2018-06-30 00:57] LABS: ABG Base Excess -2.2 MMOL/L (-2.5-2.5); ABG HCO3 22.6 MMOL/L (20-26); ABG Oxygen Saturation 99.3 % (95-100); ABG PCO2 35.3 MM HG (35-48); ABG PH 7.404 (7.35-7.45); ABG TCO2 20.3 MMOL/L (23-27); Glucose Heart Surgery 143 MG/DL (74-106); Hematocrit Heart Surgery 28.3 PERCENT (42-52); Hemoglobin Heart Surgery 9.1 G/DL (14.0-18.0); Potassium Heart/CVR 4.1 MMOL/L (3.5-5.1)
[2018-06-30] MEDS: FUROSEMIDE 40 MG/4 ML VIAL IV SCH ×2 (01:08→06:02)
[2018-06-30 04:52] LABS: ABG Base Excess -0.9 MMOL/L (-2.5-2.5); ABG HCO3 22.5 MMOL/L (20-26); ABG Oxygen Saturation 98.4 % (95-100); ABG PH 7.452 (7.35-7.45); ABG PO2 178.6 MM HG (80-95); ABG TCO2 23.5 MMOL/L (23-27); Glucose Heart Surgery 119 MG/DL (74-106); Hemoglobin Heart Surgery 10.4 G/DL (14.0-18.0); Potassium Heart/CVR 4.3 MMOL/L (3.5-5.1)
[2018-06-30 05:15] LABS: Basophils % 0.2 % (0.0-0.8); Hematocrit 28.3 VOL% (42.0-52.0); Hemoglobin 9.8 GM/DL (14.0-18.0); Immature Granulocytes % 1.1 %; Immature Granulocytes Absolute 0.21 #; Lymphocytes # 0.6 10*3/uL (1.4-4.0); Lymphocytes % 3.2 % (21.2-54.2); Mean Corpuscular HGB Conc 34.6 GM/DL (32-36); Mean Corpuscular Hemoglobin 28 PG (27-34); Mean Corpuscular Volume 81.8 FL (87-102); Mean Platelet Volume 12.3 FL (9.6-12.0); Monocytes # 1.3 10*3/uL (0.11-0.8); Monocytes % 6.7 % (1.7-12.7); NRBC # 0.05 10*3/uL; Neutrophils # 17.7 10*3/uL (1.4-7.4); Neutrophils % 88.8 % (38.7-73.9); Platelet Count 97 T/CUMM (130-400); Red Blood Count 3.46 MC/CUMM (3.8-5.5); Red Cell Distribution Width 16.7 % (9.3-17.3); White Blood Count 19.9 T/CUMM (4-12)
[2018-06-30 05:43] LABS: Albumin 3.1 G/DL (3.4-5.0); Bilirubin,Direct 0.2 MG/DL (0.0-0.20); Bilirubin,Total 0.5 MG/DL (0.2-1.0); Calcium 8.1 MG/DL (8.5-10.1); Osmolality,Calculated 294.8 MOS/KG (273-304); Potassium 4.4 MMOL/L (3.5-5.1); Total Protein 5.6 G/DL (6.4-8.3)
[2018-06-30] MEDS: PROPOFOL 1,000 MG/100 ML BOTTLE IV SCH (08:05)
[2018-06-30 08:36] LABS: Band Neutrophils 4 % (0-10); Platelet Estimate Decreased; Polychromasia Slight; Segmented Neutrophils 94 % (50-85); Total Cells Counted 100
[2018-06-30] MEDS: FUROSEMIDE INJ 100 MG in SODIUM CHLORIDE 0.9% 90 ML IV SCH ×2 (08:42→17:37)
[2018-06-30] MEDS: HALOPERIDOL 5 MG/ML AMP IV PRN ×2 (08:47→22:57)
[2018-06-30] MEDS: HYDROmorphone 2 MG/1 ML VIAL IV PRN ×3 (08:47→14:50)
[2018-06-30 09:29] LABS: ABG Base Excess -0.6 MMOL/L (-2.5-2.5); ABG HCO3 23.9 MMOL/L (20-26); ABG Oxygen Saturation 99.2 % (95-100); ABG PCO2 36.5 MM HG (35-48); ABG PH 7.417 (7.35-7.45); ABG TCO2 21.4 MMOL/L (23-27); Glucose Heart Surgery 80 MG/DL (74-106); Hematocrit Heart Surgery 30.8 PERCENT (42-52); Potassium Heart/CVR 4.8 MMOL/L (3.5-5.1)
[2018-06-30] MEDS: CHLORHEXIDINE 0.12% ORAL RINSE 60 ML BOTTLE SWISH/SPIT SCH ×2 (09:40→21:22)
[2018-06-30] MEDS: dilTIAZem Drip 125 MG/125 ML PREMIX IV SCH ×2 (09:44→14:47)
[2018-06-30 10:31] LABS: ABG Base Excess -1.4 MMOL/L (-2.5-2.5); ABG HCO3 23.2 MMOL/L (20-26); ABG Oxygen Saturation 98.9 % (95-100); ABG PCO2 35.9 MM HG (35-48); ABG PH 7.411 (7.35-7.45); ABG TCO2 20.6 MMOL/L (23-27); Glucose Heart Surgery 110 MG/DL (74-106); Hematocrit Heart Surgery 31.5 PERCENT (42-52); Hemoglobin Heart Surgery 10.2 G/DL (14.0-18.0); Potassium Heart/CVR 4.8 MMOL/L (3.5-5.1)
[2018-06-30] MEDS: ALBUTEROL/IPRATROPIUM 3 ML NEB RESP TX SCH ×4 (11:22→23:20)
[2018-06-30 11:58] LABS: ABG Base Excess -1.5 MMOL/L (-2.5-2.5); ABG HCO3 23.2 MMOL/L (20-26); ABG Oxygen Saturation 97.8 % (95-100); ABG PCO2 39.7 MM HG (35-48); ABG TCO2 21.4 MMOL/L (23-27); Glucose Heart Surgery 118 MG/DL (74-106); Hematocrit Heart Surgery 31.1 PERCENT (42-52); Potassium Heart/CVR 4.9 MMOL/L (3.5-5.1)
[2018-06-30] MEDS: INSULIN REGULAR 100 UNIT/ML SUBCUT SCH ×4 (12:01→21:24)
[2018-06-30] MEDS ORDERED: INSULIN REGULAR 100 UNIT/ML SUBCUT SCH (14:00)
[2018-06-30] MEDS: SODIUM CHLORIDE 0.45% 1,000 ML IV SCH ×2 (14:48)
[2018-06-30] MEDS: ONDANSETRON 4 MG/2 ML VIAL IV PRN (17:05)
[2018-06-30] MEDS: METOCLOPRAMIDE 10 MG/2 ML VIAL IV PRN (17:37)
[2018-06-30] MEDS: PROMETHAZINE INJ 12.5 MG in SODIUM CHLORIDE 0.9% 50 ML IV PRN (17:48)
[2018-06-30 21:20] LABS: ABG Base Excess 0.1 MMOL/L (-2.5-2.5); ABG HCO3 24.5 MMOL/L (20-26); ABG Oxygen Saturation 97.9 % (95-100); ABG PCO2 39.8 MM HG (35-48); ABG PH 7.401 (7.35-7.45); ABG TCO2 22.5 MMOL/L (23-27); Glucose Heart Surgery 125 MG/DL (74-106); Hematocrit Heart Surgery 31.3 PERCENT (42-52); Hemoglobin Heart Surgery 10.1 G/DL (14.0-18.0); Potassium Heart/CVR 4.7 MMOL/L (3.5-5.1)
[2018-07-01] MEDS: METOCLOPRAMIDE 10 MG/2 ML VIAL IV PRN (00:23)
[2018-07-01] MEDS: PROMETHAZINE INJ 12.5 MG in SODIUM CHLORIDE 0.9% 50 ML IV PRN ×3 (00:24→18:41)
[2018-07-01] MEDS: ALBUTEROL/IPRATROPIUM 3 ML NEB RESP TX SCH ×6 (02:48→23:50)
[2018-07-01] MEDS: INSULIN REGULAR 100 UNIT/ML SUBCUT SCH ×5 (03:52→21:51)
[2018-07-01] MEDS: FUROSEMIDE INJ 100 MG in SODIUM CHLORIDE 0.9% 90 ML IV SCH (03:53)
[2018-07-01 05:19] LABS: Basophils % 0.1 % (0.0-0.8); Hematocrit 29.2 VOL% (42.0-52.0); Hemoglobin 9.5 GM/DL (14.0-18.0); Immature Granulocytes % 1.5 %; Immature Granulocytes Absolute 0.25 #; Lymphocytes # 0.5 10*3/uL (1.4-4.0); Lymphocytes % 3.1 % (21.2-54.2); Mean Corpuscular HGB Conc 32.5 GM/DL (32-36); Mean Corpuscular Hemoglobin 28 PG (27-34); Mean Corpuscular Volume 84.9 FL (87-102); Mean Platelet Volume 12.5 FL (9.6-12.0); Monocytes # 0.7 10*3/uL (0.11-0.8); Monocytes % 4.1 % (1.7-12.7); NRBC # 0.11 10*3/uL; Neutrophils % 91.2 % (38.7-73.9); Red Blood Count 3.44 MC/CUMM (3.8-5.5); Red Cell Distribution Width 17.1 % (9.3-17.3); White Blood Count 16.5 T/CUMM (4-12)
[2018-07-01 05:25] LABS: Platelet Count 65 T/CUMM (130-400)
[2018-07-01 05:35] LABS: Bilirubin,Direct 0.2 MG/DL (0.0-0.20); Bilirubin,Total 0.5 MG/DL (0.2-1.0); Calcium 8.6 MG/DL (8.5-10.1); Osmolality,Calculated 297.1 MOS/KG (273-304); Potassium 4.3 MMOL/L (3.5-5.1); Total Protein 5.8 G/DL (6.4-8.3)
[2018-07-01 05:39] LABS: Band Neutrophils 3 % (0-10); Hypochromasia 1+; Lymphocytes 6 % (20-55); Ovalocytes Slight; Platelet Estimate Decreased; Segmented Neutrophils 89 % (50-85); Total Cells Counted 100
[2018-07-01] MEDS: POTASSIUM CHLORIDE RIDER 20 MEQ in PREMIX 1 EACH IV PRN (05:50)
[2018-07-01] MEDS: glyBURIDE 5 MG TABLET PO SCH ×2 (08:07→17:05)
[2018-07-01] MEDS: FUROSEMIDE 40 MG TABLET PO SCH ×2 (08:07→17:04)
[2018-07-01] MEDS: ONDANSETRON 4 MG/2 ML VIAL IV PRN (08:19)
[2018-07-01] MEDS: ASPIRIN EC 81 MG TABLET PO SCH (09:43)
[2018-07-01] MEDS: NEBIVOLOL 5 MG TABLET PO SCH (09:43)
[2018-07-01] MEDS: PANTOPRAZOLE 40 MG TABLET PO SCH (09:43)
[2018-07-01] MEDS: BUDESONIDE/FORMOTEROL 160-4.5 INHALER 6 GM INH SCH ×2 (09:44→21:57)
[2018-07-01] MEDS: CHLORHEXIDINE 0.12% ORAL RINSE 60 ML BOTTLE SWISH/SPIT SCH ×2 (09:44→22:04)
[2018-07-01] MEDS: dilTIAZem Drip 125 MG/125 ML PREMIX IV SCH ×2 (11:09→15:32)
[2018-07-01] MEDS ORDERED: DILTIAZEM CD 120 MG CAPSULE PO SCH (13:30)
[2018-07-01] MEDS ORDERED: ONDANSETRON 4 MG/2 ML VIAL IV PRN (16:39)
[2018-07-01] MEDS ORDERED: oxyCODONE/ACETAMINOPHEN 5-325 MG TABLET PO PRN (16:39)
[2018-07-01] MEDS ORDERED: GLUCAGON 1 MG VIAL IM PRN ×2 (16:39)
[2018-07-01] MEDS ORDERED: ALUMINUM/MAGNES/SIMETH MAX STR 30 ML UDCUP PO PRN (16:39)
[2018-07-01] MEDS ORDERED: MAGNESIUM HYDROXIDE SUSP 30 ML UDCUP PO PRN (16:39)
[2018-07-01] MEDS ORDERED: ACETAMINOPHEN 325 MG TABLET PO PRN (16:39)
[2018-07-01] MEDS ORDERED: MAGNESIUM SULF RIDER 4 GM in PREMIX 1 EACH IV PRN (16:39)
[2018-07-01] MEDS ORDERED: DEXTROSE 50% 25 GM/50 ML VIAL IV PRN (16:39)
[2018-07-01] MEDS ORDERED: DEXTROSE 50% 25 GM/50 ML SYRINGE IV PRN (16:39)
[2018-07-01] MEDS ORDERED: MAGNESIUM SULF RIDER 2 GM in PREMIX 1 EACH IV PRN (16:39)
[2018-07-01] MEDS ORDERED: SODIUM CHLOR 0.45% KCL 20 MEQ 20 MEQ/1,000 ML BAG IV SCH (16:39)
[2018-07-01] MEDS: MONTELUKAST 10 MG TABLET PO SCH (21:46)
[2018-07-01] MEDS: ROSUVASTATIN 10 MG TABLET PO SCH (21:47)
[2018-07-01] MEDS: AMIODARONE 200 MG TABLET PO SCH (21:47)
[2018-07-01] MEDS: MELATONIN 3 MG TABLET PO SCH (21:48)
[2018-07-01] MEDS: POLYETHYLENE GLYCOL POWDER 17 GM PACK PO SCH (21:56)
[2018-07-02] MEDS: INSULIN REGULAR 100 UNIT/ML SUBCUT SCH ×6 (01:05→23:21)
[2018-07-02] MEDS: PROMETHAZINE INJ 12.5 MG in SODIUM CHLORIDE 0.9% 50 ML IV PRN (01:06)
[2018-07-02] MEDS: ALBUTEROL/IPRATROPIUM 3 ML NEB RESP TX SCH ×6 (03:48→23:09)
[2018-07-02 04:43] LABS: Basophils % 0.1 % (0.0-0.8); Eosinophils % 0.2 % (0.00-10.9); Hematocrit 26.9 VOL% (42.0-52.0); Hemoglobin 8.7 GM/DL (14.0-18.0); Immature Granulocytes % 2.6 %; Immature Granulocytes Absolute 0.27 #; Lymphocytes # 0.5 10*3/uL (1.4-4.0); Lymphocytes % 4.6 % (21.2-54.2); Mean Corpuscular HGB Conc 32.3 GM/DL (32-36); Mean Corpuscular Hemoglobin 28 PG (27-34); Mean Corpuscular Volume 86.8 FL (87-102); Mean Platelet Volume 12.7 FL (9.6-12.0); Monocytes # 0.4 10*3/uL (0.11-0.8); Monocytes % 3.7 % (1.7-12.7); Neutrophils # 9.4 10*3/uL (1.4-7.4); Neutrophils % 88.8 % (38.7-73.9); Platelet Count 70 T/CUMM (130-400); Red Cell Distribution Width 16.3 % (9.3-17.3); White Blood Count 10.6 T/CUMM (4-12)
[2018-07-02 05:02] LABS: Alanine Aminotransferase 173 U/L (16-61); Albumin 2.6 G/DL (3.4-5.0); Alkaline Phosphatase 45 U/L (45-117); Aspartate Amino Transferase 84 U/L (0-37); Bilirubin,Indirect 0.9 MG/DL (0.0-1.0); Blood Urea Nitrogen 42 MG/DL (7-18); Calcium 7.9 MG/DL (8.5-10.1); Glucose 104 MG/DL (74-106); Osmolality,Calculated 296.8 MOS/KG (273-304); Potassium 3.5 MMOL/L (3.5-5.1); Sodium 144 MMOL/L (136-145); Total Protein 5.4 G/DL (6.4-8.3)
[2018-07-02 05:39] LABS: Anisocytosis 1+; Band Neutrophils 11 % (0-10); Lymphocytes 2 % (20-55); Nucleated Red Blood Cells 1 (0-5); Platelet Estimate Decreased; Segmented Neutrophils 84 % (50-85); Total Cells Counted 100
[2018-07-02] MEDS ORDERED: FUROSEMIDE 40 MG/4 ML VIAL IV ONE (06:00)
[2018-07-02] MEDS: FUROSEMIDE 40 MG TABLET PO SCH (09:14)
[2018-07-02] MEDS: FERROUS SULFATE 325 MG TABLET PO SCH (09:20)
[2018-07-02] MEDS: guaiFENesin/DM ER 600-30 MG TABLET PO SCH ×2 (09:20→21:59)
[2018-07-02] MEDS: glyBURIDE 5 MG TABLET PO SCH ×2 (09:21→17:28)
[2018-07-02] MEDS: DOCUSATE SODIUM 100 MG CAPSULE PO SCH (09:21)
[2018-07-02] MEDS: PANTOPRAZOLE 40 MG TABLET PO SCH (09:21)
[2018-07-02] MEDS: CHLORHEXIDINE 0.12% ORAL RINSE 60 ML BOTTLE SWISH/SPIT SCH ×2 (09:21→22:40)
[2018-07-02] MEDS: BUDESONIDE/FORMOTEROL 160-4.5 INHALER 6 GM INH SCH ×2 (09:21→22:02)
[2018-07-02] MEDS: NEBIVOLOL 5 MG TABLET PO SCH (09:21)
[2018-07-02] MEDS: ASPIRIN EC 81 MG TABLET PO SCH (09:21)
[2018-07-02] MEDS: MELATONIN 3 MG TABLET PO SCH (21:59)
[2018-07-02] MEDS: AMIODARONE 200 MG TABLET PO SCH (21:59)
[2018-07-02] MEDS: ROSUVASTATIN 10 MG TABLET PO SCH (21:59)
[2018-07-02] MEDS: MONTELUKAST 10 MG TABLET PO SCH (22:40)
[2018-07-02] MEDS: POLYETHYLENE GLYCOL POWDER 17 GM PACK PO SCH (22:40)
[2018-07-03] MEDS: INSULIN REGULAR 100 UNIT/ML SUBCUT SCH ×6 (03:00→21:02)
[2018-07-03] MEDS: ALBUTEROL/IPRATROPIUM 3 ML NEB RESP TX SCH ×6 (03:30→23:38)
[2018-07-03 04:58] LABS: Basophils % 0.1 % (0.0-0.8); Eosinophils # 0.1 10*3/uL (0.0-0.87); Eosinophils % 0.8 % (0.00-10.9); Hematocrit 28.6 VOL% (42.0-52.0); Immature Granulocytes % 1.1 %; Immature Granulocytes Absolute 0.11 #; Lymphocytes # 0.6 10*3/uL (1.4-4.0); Lymphocytes % 5.5 % (21.2-54.2); Mean Corpuscular HGB Conc 31.5 GM/DL (32-36); Mean Corpuscular Hemoglobin 28 PG (27-34); Mean Corpuscular Volume 89.1 FL (87-102); Mean Platelet Volume 12.9 FL (9.6-12.0); Monocytes # 0.5 10*3/uL (0.11-0.8); Monocytes % 4.6 % (1.7-12.7); NRBC # 0.02 10*3/uL; Neutrophils # 8.7 10*3/uL (1.4-7.4); Neutrophils % 87.9 % (38.7-73.9); Platelet Count 70 T/CUMM (130-400); Red Blood Count 3.21 MC/CUMM (3.8-5.5); Red Cell Distribution Width 15.9 % (9.3-17.3); White Blood Count 9.9 T/CUMM (4-12)
[2018-07-03 05:30] LABS: Alanine Aminotransferase 135 U/L (16-61); Albumin 2.6 G/DL (3.4-5.0); Alkaline Phosphatase 51 U/L (45-117); Aspartate Amino Transferase 53 U/L (0-37); Bilirubin,Indirect 0.7 MG/DL (0.0-1.0); Blood Urea Nitrogen 36 MG/DL (7-18); Glucose 85 MG/DL (74-106); Potassium 3.5 MMOL/L (3.5-5.1); Sodium 143 MMOL/L (136-145); Total Protein 5.6 G/DL (6.4-8.3)
[2018-07-03 05:34] LABS: Troponin I 0.842 NG/ML (0.00-0.045)
[2018-07-03 05:59] LABS: Hypochromasia 1+; Ovalocytes Slight; Platelet Estimate Decreased
[2018-07-03] MEDS: guaiFENesin/DM ER 600-30 MG TABLET PO SCH ×2 (08:26→21:03)
[2018-07-03] MEDS: NEBIVOLOL 5 MG TABLET PO SCH (08:26)
[2018-07-03] MEDS: FERROUS SULFATE 325 MG TABLET PO SCH (08:26)
[2018-07-03] MEDS: DOCUSATE SODIUM 100 MG CAPSULE PO SCH (08:26)
[2018-07-03] MEDS: PANTOPRAZOLE 40 MG TABLET PO SCH (08:26)
[2018-07-03] MEDS: ASPIRIN EC 81 MG TABLET PO SCH (08:26)
[2018-07-03] MEDS: BUDESONIDE/FORMOTEROL 160-4.5 INHALER 6 GM INH SCH ×2 (08:27→21:03)
[2018-07-03] MEDS: glyBURIDE 5 MG TABLET PO SCH ×2 (08:27→16:50)
[2018-07-03] MEDS: POTASSIUM CHLORIDE 20 MEQ TABLET PO PRN ×2 (08:27→13:10)
[2018-07-03] MEDS: CHLORHEXIDINE 0.12% ORAL RINSE 60 ML BOTTLE SWISH/SPIT SCH ×2 (08:27→21:16)
[2018-07-03] MEDS: ROSUVASTATIN 10 MG TABLET PO SCH (21:03)
[2018-07-03] MEDS: AMIODARONE 200 MG TABLET PO SCH (21:03)
[2018-07-03] MEDS: MELATONIN 3 MG TABLET PO SCH (21:03)
[2018-07-03] MEDS: MONTELUKAST 10 MG TABLET PO SCH (21:03)
[2018-07-03] MEDS: POLYETHYLENE GLYCOL POWDER 17 GM PACK PO SCH (21:04)
[2018-07-03] MEDS: ZALEPLON 5 MG CAPSULE PO PRN (21:04)
[2018-07-04] MEDS: INSULIN REGULAR 100 UNIT/ML SUBCUT SCH ×6 (00:02→20:19)
[2018-07-04] MEDS: ALBUTEROL/IPRATROPIUM 3 ML NEB RESP TX SCH ×6 (02:38→23:35)
[2018-07-04] MEDS: CHLORHEXIDINE 0.12% ORAL RINSE 60 ML BOTTLE SWISH/SPIT SCH ×2 (09:01→20:36)
[2018-07-04] MEDS: NEBIVOLOL 5 MG TABLET PO SCH (09:01)
[2018-07-04] MEDS: ASPIRIN EC 81 MG TABLET PO SCH (09:01)
[2018-07-04] MEDS: PANTOPRAZOLE 40 MG TABLET PO SCH (09:01)
[2018-07-04] MEDS: FERROUS SULFATE 325 MG TABLET PO SCH (09:01)
[2018-07-04] MEDS: guaiFENesin/DM ER 600-30 MG TABLET PO SCH ×2 (09:01→20:24)
[2018-07-04] MEDS: DOCUSATE SODIUM 100 MG CAPSULE PO SCH (09:01)
[2018-07-04] MEDS: glyBURIDE 5 MG TABLET PO SCH ×2 (09:01→17:15)
[2018-07-04] MEDS: BUDESONIDE/FORMOTEROL 160-4.5 INHALER 6 GM INH SCH ×2 (09:02→20:36)
[2018-07-04] MEDS: ROSUVASTATIN 10 MG TABLET PO SCH (20:24)
[2018-07-04] MEDS: MELATONIN 3 MG TABLET PO SCH (20:24)
[2018-07-04] MEDS: AMIODARONE 200 MG TABLET PO SCH (20:24)
[2018-07-04] MEDS: MONTELUKAST 10 MG TABLET PO SCH (20:24)
[2018-07-04] MEDS: ZALEPLON 5 MG CAPSULE PO PRN (20:25)
[2018-07-04] MEDS: POLYETHYLENE GLYCOL POWDER 17 GM PACK PO SCH (20:36)
[2018-07-05] MEDS: INSULIN REGULAR 100 UNIT/ML SUBCUT SCH ×6 (01:25→21:24)
[2018-07-05] MEDS: ALBUTEROL/IPRATROPIUM 3 ML NEB RESP TX SCH ×6 (03:27→23:16)
[2018-07-05 04:47] LABS: Basophils % 0.1 % (0.0-0.8); Eosinophils # 0.2 10*3/uL (0.0-0.87); Eosinophils % 1.9 % (0.00-10.9); Hematocrit 28.1 VOL% (42.0-52.0); Hemoglobin 8.9 GM/DL (14.0-18.0); Immature Granulocytes % 1.8 %; Immature Granulocytes Absolute 0.17 #; Lymphocytes # 0.5 10*3/uL (1.4-4.0); Lymphocytes % 4.7 % (21.2-54.2); Mean Corpuscular HGB Conc 31.7 GM/DL (32-36); Mean Corpuscular Hemoglobin 29 PG (27-34); Mean Corpuscular Volume 90.4 FL (87-102); Mean Platelet Volume 12.7 FL (9.6-12.0); Monocytes # 0.5 10*3/uL (0.11-0.8); Neutrophils # 8.3 10*3/uL (1.4-7.4); Neutrophils % 86.5 % (38.7-73.9); Platelet Count 83 T/CUMM (130-400); Red Blood Count 3.11 MC/CUMM (3.8-5.5); Red Cell Distribution Width 16.4 % (9.3-17.3); White Blood Count 9.6 T/CUMM (4-12)
[2018-07-05 05:18] LABS: Lymphocytes 3 % (20-55); Metamyelocytes 1 %; Nucleated Red Blood Cells 1 (0-5); Platelet Estimate Decreased; Segmented Neutrophils 90 % (50-85); Total Cells Counted 100
[2018-07-05 05:19] LABS: Hypochromasia 2+
[2018-07-05 05:21] LABS: Alanine Aminotransferase 71 U/L (16-61); Albumin 2.6 G/DL (3.4-5.0); Alkaline Phosphatase 52 U/L (45-117); Aspartate Amino Transferase 30 U/L (0-37); Bilirubin,Indirect 0.9 MG/DL (0.0-1.0); Blood Urea Nitrogen 23 MG/DL (7-18); Calcium 7.7 MG/DL (8.5-10.1); Glucose 114 MG/DL (74-106); Potassium 3.8 MMOL/L (3.5-5.1); Sodium 143 MMOL/L (136-145); Total Protein 5.6 G/DL (6.4-8.3)
[2018-07-05 05:23] LABS: Troponin I 0.312 NG/ML (0.00-0.045)
[2018-07-05] MEDS: glyBURIDE 5 MG TABLET PO SCH ×2 (09:01→15:44)
[2018-07-05] MEDS: ASPIRIN EC 81 MG TABLET PO SCH (09:01)
[2018-07-05] MEDS: NEBIVOLOL 5 MG TABLET PO SCH (09:01)
[2018-07-05] MEDS: DOCUSATE SODIUM 100 MG CAPSULE PO SCH (09:01)
[2018-07-05] MEDS: APIXABAN 5 MG TABLET PO SCH ×2 (09:01→21:11)
[2018-07-05] MEDS: FERROUS SULFATE 325 MG TABLET PO SCH (09:01)
[2018-07-05] MEDS: BUDESONIDE/FORMOTEROL 160-4.5 INHALER 6 GM INH SCH ×2 (09:02→21:13)
[2018-07-05] MEDS: CHLORHEXIDINE 0.12% ORAL RINSE 60 ML BOTTLE SWISH/SPIT SCH ×2 (09:02→21:13)
[2018-07-05] MEDS: PANTOPRAZOLE 40 MG TABLET PO SCH (09:02)
[2018-07-05] MEDS: guaiFENesin/DM ER 600-30 MG TABLET PO SCH ×2 (09:02→21:11)
[2018-07-05] MEDS: POTASSIUM CHLORIDE 20 MEQ TABLET PO PRN (09:02)
[2018-07-05] MEDS: AMIODARONE 200 MG TABLET PO SCH (21:11)
[2018-07-05] MEDS: MELATONIN 3 MG TABLET PO SCH (21:11)
[2018-07-05] MEDS: ROSUVASTATIN 10 MG TABLET PO SCH (21:11)
[2018-07-05] MEDS: MONTELUKAST 10 MG TABLET PO SCH (21:11)
[2018-07-05] MEDS: ZALEPLON 5 MG CAPSULE PO PRN (21:11)
[2018-07-05] MEDS: POLYETHYLENE GLYCOL POWDER 17 GM PACK PO SCH (21:18)
[2018-07-06] MEDS: INSULIN REGULAR 100 UNIT/ML SUBCUT SCH ×6 (00:30→21:03)
[2018-07-06] MEDS: ALBUTEROL/IPRATROPIUM 3 ML NEB RESP TX SCH ×6 (03:12→22:37)
[2018-07-06 04:23] LABS: Basophils % 0.2 % (0.0-0.8); Eosinophils # 0.3 10*3/uL (0.0-0.87); Hematocrit 29.1 VOL% (42.0-52.0); Hemoglobin 9.1 GM/DL (14.0-18.0); Immature Granulocytes % 2.2 %; Immature Granulocytes Absolute 0.21 #; Lymphocytes # 0.5 10*3/uL (1.4-4.0); Lymphocytes % 4.9 % (21.2-54.2); Mean Corpuscular HGB Conc 31.3 GM/DL (32-36); Mean Corpuscular Hemoglobin 28 PG (27-34); Mean Corpuscular Volume 90.1 FL (87-102); Mean Platelet Volume 12.8 FL (9.6-12.0); Monocytes # 0.6 10*3/uL (0.11-0.8); Monocytes % 6.4 % (1.7-12.7); Neutrophils # 7.8 10*3/uL (1.4-7.4); Neutrophils % 83.3 % (38.7-73.9); Platelet Count 100 T/CUMM (130-400); Red Blood Count 3.23 MC/CUMM (3.8-5.5); Red Cell Distribution Width 16.2 % (9.3-17.3); White Blood Count 9.3 T/CUMM (4-12)
[2018-07-06 04:47] LABS: Alanine Aminotransferase 54 U/L (16-61); Albumin 2.7 G/DL (3.4-5.0); Alkaline Phosphatase 49 U/L (45-117); Aspartate Amino Transferase 25 U/L (0-37); Bilirubin,Indirect 0.5 MG/DL (0.0-1.0); Blood Urea Nitrogen 20 MG/DL (7-18); Calcium 8.3 MG/DL (8.5-10.1); Glucose 76 MG/DL (74-106); Potassium 3.9 MMOL/L (3.5-5.1); Sodium 143 MMOL/L (136-145); Total Protein 5.7 G/DL (6.4-8.3)
[2018-07-06 04:53] LABS: Troponin I 0.213 NG/ML (0.00-0.045)
[2018-07-06 05:12] LABS: Band Neutrophils 1 % (0-10); Eosinophils 5 % (0-10); Lymphocytes 2 % (20-55); Metamyelocytes 1 %; Segmented Neutrophils 86 % (50-85); Total Cells Counted 100
[2018-07-06 05:13] LABS: Hypochromasia 1+; Ovalocytes 1+; Platelet Estimate Adequate; Polychromasia Few
[2018-07-06 05:14] LABS: Microcytosis 1+
[2018-07-06] MEDS: DOCUSATE SODIUM 100 MG CAPSULE PO SCH (08:32)
[2018-07-06] MEDS: PANTOPRAZOLE 40 MG TABLET PO SCH (08:32)
[2018-07-06] MEDS: glyBURIDE 5 MG TABLET PO SCH ×2 (08:32→16:23)
[2018-07-06] MEDS: APIXABAN 5 MG TABLET PO SCH ×2 (08:32→21:01)
[2018-07-06] MEDS: NEBIVOLOL 5 MG TABLET PO SCH (08:33)
[2018-07-06] MEDS: CHLORHEXIDINE 0.12% ORAL RINSE 60 ML BOTTLE SWISH/SPIT SCH ×2 (08:33→21:03)
[2018-07-06] MEDS: guaiFENesin/DM ER 600-30 MG TABLET PO SCH ×2 (08:33→21:01)
[2018-07-06] MEDS: ASPIRIN EC 81 MG TABLET PO SCH (08:33)
[2018-07-06] MEDS: FERROUS SULFATE 325 MG TABLET PO SCH (08:33)
[2018-07-06] MEDS: BUDESONIDE/FORMOTEROL 160-4.5 INHALER 6 GM INH SCH ×2 (08:33→21:02)
[2018-07-06] MEDS: MONTELUKAST 10 MG TABLET PO SCH (21:01)
[2018-07-06] MEDS: ROSUVASTATIN 10 MG TABLET PO SCH (21:01)
[2018-07-06] MEDS: MELATONIN 3 MG TABLET PO SCH (21:01)
[2018-07-06] MEDS: AMIODARONE 200 MG TABLET PO SCH (21:01)
[2018-07-06] MEDS: ZALEPLON 5 MG CAPSULE PO PRN (21:01)
[2018-07-06] MEDS: POLYETHYLENE GLYCOL POWDER 17 GM PACK PO SCH (21:02)
[2018-07-07] MEDS: INSULIN REGULAR 100 UNIT/ML SUBCUT SCH ×3 (01:07→09:31)
[2018-07-07] MEDS: ALBUTEROL/IPRATROPIUM 3 ML NEB RESP TX SCH ×2 (02:31→07:08)
[2018-07-07 08:06] VITALS: BP 135/72
[2018-07-07] MEDS: glyBURIDE 5 MG TABLET PO SCH (09:30)
[2018-07-07] MEDS: guaiFENesin/DM ER 600-30 MG TABLET PO SCH (09:30)
[2018-07-07] MEDS: PANTOPRAZOLE 40 MG TABLET PO SCH (09:31)
[2018-07-07] MEDS: NEBIVOLOL 5 MG TABLET PO SCH (09:31)
[2018-07-07] MEDS: FERROUS SULFATE 325 MG TABLET PO SCH (09:31)
[2018-07-07] MEDS: APIXABAN 5 MG TABLET PO SCH (09:31)
[2018-07-07] MEDS: ASPIRIN EC 81 MG TABLET PO SCH (09:31)
[2018-07-07] MEDS: DOCUSATE SODIUM 100 MG CAPSULE PO SCH (09:31)
[2018-07-07] MEDS: CHLORHEXIDINE 0.12% ORAL RINSE 60 ML BOTTLE SWISH/SPIT SCH (09:32)
[2018-07-07] MEDS: BUDESONIDE/FORMOTEROL 160-4.5 INHALER 6 GM INH SCH (09:32)
== END 2018-07-07 10:46 | disposition home health service (06) | DRG 219 ==
LOC: N.4E 09:13 → N.CVR 06-28 08:08 → N.ICU 07-01 06:35 → N.TELES 07-01 19:57

== ENCOUNTER 2018-07-09 15:52 | Inpatient (IN) ==
[2018-07-09 16:56] LABS: Hematocrit 35.5 VOL% (42.0-52.0); Mean Corpuscular Hemoglobin 28 PG (27-34); Platelet Count 218 T/CUMM (130-400); Red Cell Distribution Width 18.1 % (9.3-17.3); White Blood Count 19.4 T/CUMM (4-12)
[2018-07-09 16:57] LABS: Basophils % 0.2 % (0.0-0.8); Eosinophils # 0.1 10*3/uL (0.0-0.87); Eosinophils % 0.3 % (0.00-10.9); Immature Granulocytes % 1.3 %; Immature Granulocytes Absolute 0.25 #; Lymphocytes # 0.2 10*3/uL (1.4-4.0); Lymphocytes % 1.1 % (21.2-54.2); Monocytes # 0.6 10*3/uL (0.11-0.8); Monocytes % 2.8 % (1.7-12.7); NRBC # 0.02 10*3/uL; Neutrophils # 18.2 10*3/uL (1.4-7.4); Neutrophils % 94.3 % (38.7-73.9)
[2018-07-09 17:05] LABS: INR 1.2; PT Patient Result 12.5 SECS
[2018-07-09 17:16] LABS: Albumin 3.3 G/DL (3.4-5.0); Bilirubin,Total 1.3 MG/DL (0.2-1.0); Osmolality,Calculated 286.8 MOS/KG (273-304); Potassium 4.7 MMOL/L (3.5-5.1); Total Protein 6.8 G/DL (6.4-8.3)
[2018-07-09 17:33] LABS: Lymphocytes 3 % (20-55); Segmented Neutrophils 96 % (50-85); Total Cells Counted 100
[2018-07-09 17:34] LABS: Anisocytosis Slight; Hypochromasia 1+
[2018-07-09 17:35] LABS: Microcytosis 1+; Ovalocytes Slight; Platelet Estimate Normal
[2018-07-09 17:36] LABS: Polychromasia Few
[2018-07-09] MEDS ORDERED: ONDANSETRON 4 MG/2 ML VIAL IV PRN (18:28)
[2018-07-09] MEDS ORDERED: GLUCAGON 1 MG VIAL IM PRN (18:28)
[2018-07-09] MEDS ORDERED: ACETAMINOPHEN 325 MG TABLET PO PRN (18:28)
[2018-07-09] MEDS ORDERED: DEXTROSE 50% 25 GM/50 ML VIAL IV PRN (18:28)
[2018-07-09] MEDS ORDERED: SODIUM CHLORIDE 0.9% 1,000 ML IV SCH (18:30)
[2018-07-09] MEDS ORDERED: POLYETHYLENE GLYCOL POWDER 17 GM PACK PO PRN (18:32)
[2018-07-09] MEDS ORDERED: PANTOPRAZOLE 40 MG TABLET PO PRN (18:32)
[2018-07-09] MEDS ORDERED: ALBUTEROL/IPRATROPIUM 3 ML NEB RESP TX PRN (18:35)
[2018-07-09 19:20] LABS: Apearance,Urine CLEAR (Clear); Bilirubin,Urine Negative (Negative); Blood, Urine Small mg/dL (Negative); Glucose,Urine (UA) Negative (Negative); Hyaline Casts,Urine 22 /LPF (0-3); Ketones,Urine Negative (Negative); Mucus,Urine Occasional /LPF (Occasional); Nitrite,Urine Negative (Negative); Protein,Urine Negative; RBC,Urine 3 /HPF (0-4); Urine Color Yellow (Yellow); Urine Specific Gravity 1.013 (1.001-1.035); Urine Urobilinogen < 2.0 EU/DL (0.2-1.0); WBC,Urine <1 /HPF (0-6)
[2018-07-09] MEDS: ALBUTEROL/IPRATROPIUM 3 ML NEB RESP TX SCH (20:05)
[2018-07-09] MEDS: LEVOFLOXACIN INJ 750 MG in PREMIX 1 EACH IV SCH (21:01)
[2018-07-09] MEDS: APIXABAN 5 MG TABLET PO SCH (21:05)
[2018-07-09] MEDS: POTASSIUM CHLORIDE 20 MEQ TABLET PO SCH (21:05)
[2018-07-09] MEDS: AMIODARONE 200 MG TABLET PO SCH (21:05)
[2018-07-09] MEDS: ASPIRIN EC 81 MG TABLET PO SCH (21:05)
[2018-07-09] MEDS: ROSUVASTATIN 10 MG TABLET PO SCH (21:05)
[2018-07-09] MEDS: OLANZapine 5 MG TABLET PO SCH (21:05)
[2018-07-09] MEDS: INSULIN REGULAR 100 UNIT/ML SUBCUT SCH (21:07)
[2018-07-09] MEDS: BUDESONIDE/FORMOTEROL 160-4.5 INHALER 6 GM INH SCH (22:35)
[2018-07-09] MEDS: PIPERACILLIN/TAZOBACTAM 3,375 MG in SODIUM CHLORIDE 0.9% 100 ML IV SCH (22:35)
[2018-07-10] MEDS: ALBUTEROL/IPRATROPIUM 3 ML NEB RESP TX SCH ×4 (00:50→19:56)
[2018-07-10 04:52] LABS: Basophils % 0.3 % (0.0-0.8); Eosinophils % 0.3 % (0.00-10.9); Hematocrit 29.3 VOL% (42.0-52.0); Hemoglobin 9.2 GM/DL (14.0-18.0); Immature Granulocytes % 0.9 %; Immature Granulocytes Absolute 0.12 #; Lymphocytes # 0.5 10*3/uL (1.4-4.0); Lymphocytes % 3.4 % (21.2-54.2); Mean Corpuscular HGB Conc 31.4 GM/DL (32-36); Mean Corpuscular Hemoglobin 29 PG (27-34); Mean Platelet Volume 11.7 FL (9.6-12.0); Monocytes # 0.5 10*3/uL (0.11-0.8); Monocytes % 4.1 % (1.7-12.7); NRBC # 0.02 10*3/uL; Neutrophils # 12.1 10*3/uL (1.4-7.4); Platelet Count 168 T/CUMM (130-400); Red Blood Count 3.22 MC/CUMM (3.8-5.5); Red Cell Distribution Width 17.8 % (9.3-17.3); White Blood Count 13.3 T/CUMM (4-12)
[2018-07-10 05:06] LABS: Calcium 7.9 MG/DL (8.5-10.1); Osmolality,Calculated 289.3 MOS/KG (273-304); Potassium 3.9 MMOL/L (3.5-5.1)
[2018-07-10 05:44] LABS: Band Neutrophils 2 % (0-10); Hypochromasia 1+; Lymphocytes 2 % (20-55); Microcytosis 1+; Polychromasia Slight; Segmented Neutrophils 94 % (50-85); Total Cells Counted 100
[2018-07-10 05:45] LABS: Anisocytosis 1+; Ovalocytes Slight; Platelet Estimate Adequate
[2018-07-10] MEDS: PIPERACILLIN/TAZOBACTAM 3,375 MG in SODIUM CHLORIDE 0.9% 100 ML IV SCH ×3 (06:47→23:36)
[2018-07-10] MEDS: INSULIN REGULAR 100 UNIT/ML SUBCUT SCH ×4 (07:55→21:06)
[2018-07-10] MEDS: glyBURIDE 5 MG TABLET PO SCH ×2 (08:28→17:20)
[2018-07-10] MEDS: MAGNESIUM CHLORIDE 64 MG TABLET PO SCH (08:28)
[2018-07-10] MEDS: POTASSIUM CHLORIDE 20 MEQ TABLET PO SCH ×2 (08:28→21:06)
[2018-07-10] MEDS: FUROSEMIDE 40 MG TABLET PO SCH ×2 (08:28→21:07)
[2018-07-10] MEDS: APIXABAN 5 MG TABLET PO SCH ×2 (08:28→21:07)
[2018-07-10] MEDS: NEBIVOLOL 5 MG TABLET PO SCH (08:29)
[2018-07-10] MEDS: BUDESONIDE/FORMOTEROL 160-4.5 INHALER 6 GM INH SCH ×2 (08:29→21:03)
[2018-07-10] MEDS: FERROUS SULFATE 325 MG TABLET PO SCH (08:29)
[2018-07-10] MEDS: SODIUM CHLORIDE 0.9% 1,000 ML IV SCH (15:07)
[2018-07-10] MEDS: OLANZapine 5 MG TABLET PO SCH (21:07)
[2018-07-10] MEDS: ROSUVASTATIN 10 MG TABLET PO SCH (21:07)
[2018-07-10] MEDS: ASPIRIN EC 81 MG TABLET PO SCH (21:07)
[2018-07-10] MEDS: AMIODARONE 200 MG TABLET PO SCH (21:07)
[2018-07-10] MEDS: LEVOFLOXACIN INJ 750 MG in PREMIX 1 EACH IV SCH (21:19)
[2018-07-10] MEDS: MELATONIN 3 MG TABLET PO PRN (22:29)
[2018-07-11] MEDS: ALBUTEROL/IPRATROPIUM 3 ML NEB RESP TX SCH ×4 (00:21→19:34)
[2018-07-11] MEDS: SODIUM CHLORIDE 0.9% 1,000 ML IV SCH ×2 (01:07→11:42)
[2018-07-11 05:52] LABS: Basophils % 0.2 % (0.0-0.8); Eosinophils # 0.2 10*3/uL (0.0-0.87); Eosinophils % 1.6 % (0.00-10.9); Hematocrit 29.9 VOL% (42.0-52.0); Hemoglobin 9.1 GM/DL (14.0-18.0); Immature Granulocytes % 0.8 %; Immature Granulocytes Absolute 0.08 #; Lymphocytes # 0.3 10*3/uL (1.4-4.0); Lymphocytes % 2.8 % (21.2-54.2); Mean Corpuscular HGB Conc 30.4 GM/DL (32-36); Mean Corpuscular Hemoglobin 28 PG (27-34); Mean Corpuscular Volume 92.9 FL (87-102); Mean Platelet Volume 11.3 FL (9.6-12.0); Monocytes # 0.3 10*3/uL (0.11-0.8); Monocytes % 3.3 % (1.7-12.7); Neutrophils # 9.2 10*3/uL (1.4-7.4); Neutrophils % 91.3 % (38.7-73.9); Platelet Count 155 T/CUMM (130-400); Red Blood Count 3.22 MC/CUMM (3.8-5.5); Red Cell Distribution Width 18.6 % (9.3-17.3); White Blood Count 10.1 T/CUMM (4-12)
[2018-07-11] MEDS: PIPERACILLIN/TAZOBACTAM 3,375 MG in SODIUM CHLORIDE 0.9% 100 ML IV SCH ×3 (05:57→23:43)
[2018-07-11 06:20] LABS: Band Neutrophils 2 % (0-10); Eosinophils 1 % (0-10); Lymphocytes 4 % (20-55); Platelet Estimate Adequate; Segmented Neutrophils 88 % (50-85); Total Cells Counted 100
[2018-07-11 06:23] LABS: Calcium 7.6 MG/DL (8.5-10.1); Potassium 3.7 MMOL/L (3.5-5.1)
[2018-07-11] MEDS: INSULIN REGULAR 100 UNIT/ML SUBCUT SCH ×4 (08:06→21:12)
[2018-07-11] MEDS: MAGNESIUM CHLORIDE 64 MG TABLET PO SCH (08:55)
[2018-07-11] MEDS: glyBURIDE 5 MG TABLET PO SCH ×2 (08:55→16:52)
[2018-07-11] MEDS: FUROSEMIDE 40 MG TABLET PO SCH ×2 (08:56→20:54)
[2018-07-11] MEDS: APIXABAN 5 MG TABLET PO SCH ×2 (08:56→20:55)
[2018-07-11] MEDS: POTASSIUM CHLORIDE 20 MEQ TABLET PO SCH ×2 (08:56→20:54)
[2018-07-11] MEDS: NEBIVOLOL 5 MG TABLET PO SCH (08:56)
[2018-07-11] MEDS: BUDESONIDE/FORMOTEROL 160-4.5 INHALER 6 GM INH SCH ×2 (08:56→21:15)
[2018-07-11] MEDS: FERROUS SULFATE 325 MG TABLET PO SCH (08:56)
[2018-07-11] MEDS: ROSUVASTATIN 10 MG TABLET PO SCH (20:54)
[2018-07-11] MEDS: OLANZapine 5 MG TABLET PO SCH (20:54)
[2018-07-11] MEDS: ASPIRIN EC 81 MG TABLET PO SCH (20:55)
[2018-07-11] MEDS: AMIODARONE 200 MG TABLET PO SCH (20:55)
[2018-07-11] MEDS: LEVOFLOXACIN INJ 750 MG in PREMIX 1 EACH IV SCH (20:55)
[2018-07-12] MEDS: ALBUTEROL/IPRATROPIUM 3 ML NEB RESP TX SCH ×5 (00:42→19:37)
[2018-07-12] MEDS: PIPERACILLIN/TAZOBACTAM 3,375 MG in SODIUM CHLORIDE 0.9% 100 ML IV SCH (06:05)
[2018-07-12] MEDS: SODIUM CHLORIDE 0.9% 1,000 ML IV SCH ×2 (06:06→10:32)
[2018-07-12 06:14] LABS: Basophils % 0.3 % (0.0-0.8); Eosinophils # 0.1 10*3/uL (0.0-0.87); Eosinophils % 1.4 % (0.00-10.9); Hematocrit 30.2 VOL% (42.0-52.0); Hemoglobin 9.1 GM/DL (14.0-18.0); Immature Granulocytes % 0.6 %; Immature Granulocytes Absolute 0.04 #; Lymphocytes # 0.3 10*3/uL (1.4-4.0); Lymphocytes % 4.8 % (21.2-54.2); Mean Corpuscular HGB Conc 30.1 GM/DL (32-36); Mean Corpuscular Hemoglobin 28 PG (27-34); Mean Corpuscular Volume 94.1 FL (87-102); Mean Platelet Volume 12.1 FL (9.6-12.0); Monocytes # 0.4 10*3/uL (0.11-0.8); Monocytes % 5.7 % (1.7-12.7); Neutrophils # 5.6 10*3/uL (1.4-7.4); Neutrophils % 87.2 % (38.7-73.9); Platelet Count 133 T/CUMM (130-400); Red Blood Count 3.21 MC/CUMM (3.8-5.5); Red Cell Distribution Width 18.7 % (9.3-17.3); White Blood Count 6.5 T/CUMM (4-12)
[2018-07-12 06:30] LABS: Calcium 7.4 MG/DL (8.5-10.1); Osmolality,Calculated 282.1 MOS/KG (273-304); Potassium 3.4 MMOL/L (3.5-5.1)
[2018-07-12 07:23] LABS: Eosinophils 1 % (0-10); Hypochromasia 1+; Lymphocytes 2 % (20-55); Segmented Neutrophils 92 % (50-85); Total Cells Counted 100
[2018-07-12 07:24] LABS: Microcytosis 1+; Ovalocytes Slight
[2018-07-12] MEDS: INSULIN REGULAR 100 UNIT/ML SUBCUT SCH ×4 (08:02→20:58)
[2018-07-12] MEDS: FUROSEMIDE 40 MG TABLET PO SCH ×2 (09:18→20:50)
[2018-07-12] MEDS: FERROUS SULFATE 325 MG TABLET PO SCH (09:19)
[2018-07-12] MEDS: APIXABAN 5 MG TABLET PO SCH ×2 (09:19→20:49)
[2018-07-12] MEDS: POTASSIUM CHLORIDE 20 MEQ TABLET PO SCH ×2 (09:19→20:49)
[2018-07-12] MEDS: NEBIVOLOL 5 MG TABLET PO SCH (09:19)
[2018-07-12] MEDS: BUDESONIDE/FORMOTEROL 160-4.5 INHALER 6 GM INH SCH ×2 (09:19→21:01)
[2018-07-12] MEDS: glyBURIDE 5 MG TABLET PO SCH ×2 (09:19→15:48)
[2018-07-12] MEDS: MAGNESIUM CHLORIDE 64 MG TABLET PO SCH (09:19)
[2018-07-12] MEDS ORDERED: NEBIVOLOL 5 MG TABLET ONE (10:01)
[2018-07-12] MEDS ORDERED: POTASSIUM CHLORIDE 20 MEQ TABLET PO PRN (10:03)
[2018-07-12] MEDS ORDERED: POTASSIUM CHLORIDE 20 MEQ/15 ML UDCUP PO PRN (10:30)
[2018-07-12] MEDS ORDERED: NEBIVOLOL 5 MG TABLET PO ONE (11:00)
[2018-07-12] MEDS: POTASSIUM CHLORIDE 10 MEQ TABLET PO PRN ×2 (12:24→14:32)
[2018-07-12] MEDS: LEVOFLOXACIN 750 MG TABLET PO SCH (14:32)
[2018-07-12] MEDS: ASPIRIN EC 81 MG TABLET PO SCH (20:49)
[2018-07-12] MEDS: MELATONIN 3 MG TABLET PO PRN (20:49)
[2018-07-12] MEDS: OLANZapine 5 MG TABLET PO SCH (20:50)
[2018-07-12] MEDS: ROSUVASTATIN 10 MG TABLET PO SCH (20:50)
[2018-07-12] MEDS: AMIODARONE 200 MG TABLET PO SCH (20:50)
[2018-07-12] MEDS ORDERED: POTASSIUM CHLORIDE 10 MEQ TABLET PO SCH (21:00)
[2018-07-13] MEDS: ALBUTEROL/IPRATROPIUM 3 ML NEB RESP TX SCH ×2 (01:48→07:23)
[2018-07-13 06:03] LABS: Calcium 7.8 MG/DL (8.5-10.1); Osmolality,Calculated 279.4 MOS/KG (273-304); Potassium 3.5 MMOL/L (3.5-5.1)
[2018-07-13 07:08] LABS: Basophils % 0.5 % (0.0-0.8); Eosinophils # 0.1 10*3/uL (0.0-0.87); Eosinophils % 1.3 % (0.00-10.9); Hemoglobin 9.7 GM/DL (14.0-18.0); Immature Granulocytes % 0.9 %; Immature Granulocytes Absolute 0.06 #; Lymphocytes # 0.3 10*3/uL (1.4-4.0); Lymphocytes % 4.6 % (21.2-54.2); Mean Corpuscular HGB Conc 30.3 GM/DL (32-36); Mean Corpuscular Hemoglobin 28 PG (27-34); Mean Corpuscular Volume 92.2 FL (87-102); Mean Platelet Volume 11.3 FL (9.6-12.0); Monocytes # 0.5 10*3/uL (0.11-0.8); Monocytes % 7.1 % (1.7-12.7); Neutrophils # 5.5 10*3/uL (1.4-7.4); Neutrophils % 85.6 % (38.7-73.9); Platelet Count 162 T/CUMM (130-400); Red Blood Count 3.47 MC/CUMM (3.8-5.5); Red Cell Distribution Width 18.8 % (9.3-17.3); White Blood Count 6.4 T/CUMM (4-12)
[2018-07-13 08:22] LABS: Anisocytosis 1+; Band Neutrophils 17 % (0-10); Basophilic Stippling Slight; Eosinophils 1 % (0-10); Lymphocytes 3 % (20-55); Macrocytosis 1+; Platelet Estimate Adequate; Segmented Neutrophils 72 % (50-85); Total Cells Counted 100
[2018-07-13 08:51] VITALS: BP 129/72
[2018-07-13] MEDS ORDERED: NEBIVOLOL 10 MG TABLET PO SCH ×2 (09:00)
[2018-07-13] MEDS: glyBURIDE 5 MG TABLET PO SCH (09:50)
[2018-07-13] MEDS: BUDESONIDE/FORMOTEROL 160-4.5 INHALER 6 GM INH SCH (09:50)
[2018-07-13] MEDS: LEVOFLOXACIN 750 MG TABLET PO SCH (09:50)
[2018-07-13] MEDS: FUROSEMIDE 40 MG TABLET PO SCH (09:50)
[2018-07-13] MEDS: FERROUS SULFATE 325 MG TABLET PO SCH (09:50)
[2018-07-13] MEDS: APIXABAN 5 MG TABLET PO SCH (09:50)
[2018-07-13] MEDS: POTASSIUM CHLORIDE 20 MEQ TABLET PO SCH (09:51)
[2018-07-13] MEDS: MAGNESIUM CHLORIDE 64 MG TABLET PO SCH (09:51)
[2018-07-13] MEDS: INSULIN REGULAR 100 UNIT/ML SUBCUT SCH (09:51)
[2018-07-15] MEDS ORDERED: Exenatide Microspheres [Bydureon Bcise] 2 MG SUBCUT SCH (18:32)
== END 2018-07-13 10:53 | disposition home health service (06) | DRG 186 ==
LOC: EDBD → EDUNIT# → N.ED 15:52 → N.EDINP 18:28 → N.2E 19:24
PROVIDERS: ADMIT Internal Medicine; ATTEND Internal Medicine
PROC: IRTHORA (2018-07-10 11:35)